=== PATIENT | female | born 1985 | race Caucasian/White ===

== ENCOUNTER 2021-04-18 16:40 | Outpatient (CLI) | payer MEDICAID, SELFPAY | END 2021-04-18 23:59 | disposition home or self-care (01) | LOC: LABSPEC 16:42 | PROVIDERS: Referring Provider Nurse Practitioner Women's Health; Visit Provider Nurse Practitioner Women's Health | DX: R30.0 Dysuria (principal) | CPT/HCPCS: 87086; 87088 ==

== ENCOUNTER 2021-06-20 16:39 | Outpatient (CLI) | payer MEDICAID, SELFPAY ==
--- NOTE | 2021-06-20 16:44 | US_ITS ---
STUDY: ULTRASOUND OF THE FEMALE PELVIS - COMPLETE REASON FOR EXAM: Female, 36 years old. aub TECHNIQUE: Endovaginal. Transvaginal US was obtained to better visualized the ovaries. COMPARISON: None. FINDINGS: The uterus is retroflexed and is in a midline position. The uterus measures 8.4 x 6 point cm. There is a Nabothian cyst of the cervix. The endometrium measures 17 mm in thickness, and is hyperechoic. There is no demonstrated endometrial mass. Uterine fibroid visualized measuring 13 mm. I.U.D. - The patient does not have an I.U.D. The right ovary is visualized. The right ovary measures 3.3 x 3.1 cm. There is no right ovarian cyst or ovarian mass. There is no visualized right adnexal mass or complex lesion. There is normal arterial and normal venous vascularity. The left ovary is visualized. The left ovary measures 1.5 x 1 cm. Physiologic follicle of the left ovary measuring 7 mm. There is no visualized left adnexal mass or complex lesion. There is normal arterial and normal venous vascularity. There is no fluid in the cul-de-sac. US/Transvaginal Non- IMPRESSION: There is a Nabothian cyst of the cervix. Fibroid uterus Electronically Signed: Stu Ho MD at 18:39 EST Reading Location ID and State: [facility] / [place] , Service support ,
== END 2021-06-20 23:59 | disposition home or self-care (01) ==
LOC: US 16:42
PROVIDERS: Referring Provider Obstetrics & Gynecology; Visit Provider Obstetrics & Gynecology
DX: N93.9 Abnormal uterine and vaginal bleeding, unspecified (principal)
CPT/HCPCS: 76830

== ENCOUNTER 2021-06-30 11:51 | Outpatient (CLI) | payer MEDICAID, SELFPAY ==
--- NOTE | 2021-06-29 | EMB_PTH ---
PATIENT: MAG ESQUIVEL LOC: [facility] U#:[id number] AGE/SX: 36/F ROOM: RE06/30/[address]: Dr. Sabrina Madrigal MD : 1985 BED: DIS: 06/30/2021 SPEC #: [id number] RECD: 06/30/21 12:55 STATUS: CHAIM REGerson #: [id number] AMARILIS: 06/29/21 00:[address]: Sabrina Madrigal DEPT: SURGICAL PATHOLOGY RECD BY: Ab Esqueda ENTERED: 06/30/21 12:56 SP TYPE: ENDOM BX/C KIERSTEN DR: No Primary Care Phys Tissues: Endometrium, NOS Procedures: Surgery Specimen Level IV HEADER OPERATION: Endometrial biopsy PRE-OP DIAGNOSIS: Abnormal uterine bleeding TISSUE SUBMITTED: Endometrial biopsy MICROSCOPIC DIAGNOSIS Endometrium, biopsy: Secretory endometrium. AM:debbie 07/01/2021 MICROSCOPIC DESCRIPTION Slides are reviewed. GROSS DESCRIPTION Received is one container labeled with the patient's name and not further designated. The specimen consists of multiple irregular fragments of rushing tissue that in aggregate measure 2 x 1.5 x 0.1 cm. The specimen is totally submitted in one cassette. / AM:debbie 06/30/2021 TC:5 CPT: 61538
== END 2021-06-30 23:59 | disposition home or self-care (01) ==
LOC: LABSPEC 11:52
PROVIDERS: Visit Provider Obstetrics & Gynecology
DX: N93.9 Abnormal uterine and vaginal bleeding, unspecified (principal)
CPT/HCPCS: 88305

== ENCOUNTER 2021-08-02 08:06 | Day surgery (SDC) | payer MEDICAID, SELFPAY ==
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
[2021-08-01 07:36] LABS: Absolute Lymphocyte Count 2.03 X10^3/uL (0.83-4.51); Absolute Neutrophil Count 4.7 X10^3/uL (2.0-7.7); Basophil# 0.08 X10^3/uL; Eosinophil# 0.46 X10^3/uL; Eosinophils% 5.7 % (0-5); Hematocrit 38.8 % (37-47); Hemoglobin 12.5 g/dL (12.0-15.0); Lymphocyte # 2.03 X10^3/ul (0.83-4.51); Lymphocyte % 25.3 % (19-41); Mean Corp Hgb Conc 32.2 g/dL (32-36); Mean Corpuscular Hgb 26.8 pg (27.0-32.0); Mean Corpuscular Volume 83.3 fL (81-99); Mean Platelet Vol. 9.3 fl (6.2-12.0); Monocyte# 0.76 X10^3/uL; Monocyte% 9.5 % (0-10); NRBC Flagged by Analyzer 0 % (0-5); Neutrophil # 4.67 X10^3/uL (2.7-7.7); Neutrophil % 58.3 % (47-70); Platelet Count 320 K/mm3 (150-450); RBC Distribution Width CV 14.3 % (11.6-14.6); RBC Distribution Width SD 43.4 fl (35.1-43.9); Red Blood Count 4.66 M/mm3 (4.2-5.4)
[2021-08-01 08:15] LABS: T4 Free Direct 0.94 ng/dL (0.76-1.46); Thyroid Stim Hormone (TSH) 1.44 uIU/mL (0.358-3.74)
[2021-08-02] VITALS (12 sets, daily range): BP systolic 99–136; BP diastolic 59–84; PULSE 51–80; RESP 16–20; TEMP 36.1–36.4; O2SAT 95–100; BMI 45.2
[2021-08-02 08:36] LABS: Internal QC Validated? YES +Cl - CLEAR BKGD
[2021-08-02 08:40] LABS: Pregnancy, Urine Negative Negative
[2021-08-02] MEDS: dexAMETHasone 10 MG/ML Vial 8 MG IV (08:44)
[2021-08-02] MEDS: Enoxaparin 40 MG/0.4 ML Syringe SC (09:11)
[2021-08-02] MEDS: Acetaminophen 500 MG Tablet 1000 MG PO (09:11)
[2021-08-02] MEDS: Gabapentin 600 MG Tablet PO (09:11)
[2021-08-02] MEDS: Lactated Ringers 1,000 ML 40 ML IV ×2 (09:11→11:30)
[2021-08-02] MEDS: Celecoxib 200 MG Capsule 400 MG PO (09:11)
[2021-08-02] MEDS: Phenazopyridine 95 MG Tablet 190 MG PO (09:11)
[2021-08-02] MEDS: Scopolamine 1mg/72hr Patch 1 PATCH TD (09:12)
[2021-08-02 09:26] LABS: Bedside Glucose 109 mg/dL (74-106)
--- NOTE | 2021-08-02 10:05 | HYST_PTH ---
PATIENT: MAG ESQUIVEL LOC: [facility] [place] U#:[id number] AGE/SX: 36/F ROOM: RE08/02/[address]: Dr. Sabrina Madrigal MD : 1985 BED: DIS: 08/02/2021 SPEC #: [id number] RECD: 08/02/21 14:16 STATUS: CHAIM REGerson #: [id number] AMARILIS: 08/02/21 10:[address]: Sabrina Madrigal DEPT: SURGICAL PATHOLOGY RECD BY: Beau Carballo ENTERED: 08/03/21 09:53 SP TYPE: HYSTERECT OTHR DR: Dr. Shyanne Walker MD Tissues: Uterus, NOS Procedures: Surgery Specimen Level V HEADER OPERATION: ERAS, hysterectomy, LAVH, salpingectomy PRE-OP DIAGNOSIS: Abnormal uterine bleeding TISSUE SUBMITTED: Uterus, cervix, bilateral fallopian tubes MICROSCOPIC DIAGNOSIS Uterus, cervix, bilateral fallopian tubes, hysterectomy and bilateral salpingectomy: Cervix ? mild chronic cystic cervicitis. Endometrium ? proliferative endometrium. Myometrium ? an intramural leiomyoma (1 cm in diameter). Bilateral fallopian tubes - no pathologic diagnosis. SJ:rg 08/04/2021 MICROSCOPIC DESCRIPTION Slides are reviewed. GROSS DESCRIPTION Received in fixative is one container labeled with the patient's name and designated uterus, cervix, bilateral fallopian tubes. The specimen consists of a hysterectomy specimen consisting of uterus with cervix and attached bilateral fallopian tubes. The uterus with cervix weighs 127 gm and measures 11 x 7 x 5 cm. The serosal surface is rushing, glistening. The ectocervix is focally disrupted and unremarkable. The external os is oval in contour. The endocervical canal measures 3.5 cm in length and the endocervical mucosa is rushing, glistening and unremarkable. Sections of the cervix reveal a few cysts filled with mucoid material. The triangular endometrial cavity measures 5 cm in length and up to cm in width. The endometrial cavity shows a small amount of blood. The endometrium is congested without any mass lesion and measures 0.1 cm in thickness. Sections of the uterine wall reveal a rushing, nodular mass measuring 1 cm in diameter. The uterine wall measures up to 2.8 cm in thickness. The right fallopian tube measures 5 cm in length and up to 1 cm in diameter. The fimbrial end is identified. Sections reveal unremarkable cut surfaces. The left fallopian tube is similar appearance to right and measures 7 cm in length and 1 cm in diameter. Medical Underwriter sections are submitted in nine cassettes as follows: 1??anterior cervix, 2 - posterior cervix, 3 & 4 - anterior uterine wall, 5 & 6 - posterior uterine wall, 7??nodular mass, 8 - right fallopian tube, 9 - left fallopian tube. / JEREMIAH:debbie 08/03/2021 TC:1 CPT: 00166
[2021-08-02] MEDS: Bupivacaine 0.25% 30 ML Vial (11:00)
[2021-08-02] MEDS: Vasopressin 20 UNITS/ML Vial (11:40)
[2021-08-02] MEDS: Lactated Ringers @ 70 MLS/HR 70 ML IV (13:27)
--- NOTE | 2021-08-02 13:28 | OP.PCM_ITS ---
Problems Associated Problem List Diagnoses (1) Abnormal uterine bleeding: (2) S/P laparoscopic assisted vaginal hysterectomy (LAVH): Report of Operation Date of Procedure: 08/02/21 Pre-Operative Diagnosis: AUB Post-Operative Diagnosis: same Surgery/Procedure Performed:: LAVHBS cystoscopy Description of Surgical Findings:: enlarged uterus with enlarged dilated blood vessels, omental to anterior abdominal wall adhesions Surgeon: Sabrina Madrigal pupil personnel services director: Luiz Euceda Type of Anesthesia: General Special Medications: floseal Specimen's removed: uterus, tubes Drains: chan Estimated Blood Loss (mL): 200 Fluids Replaced: crystalloid Description of Procedure: Patient received preoperative antibiotics and SCDs were on preoperatively. Patient was taken back to the operating room and placed in the dorsal lithotomy position. General anesthesia was induced and patient was prepped and draped in normal sterile fashion. Uterine manipulator was placed inside the uterus and Chan catheter placed in the bladder. The umbilicus was grasped with towel clamps and an intraumbilical incision was made after injecting with quarter percent Marcaine and a Veress needle entered into the abdomen confirmed to be intra-abdominal with a low opening pressure. Abdomen was insufflated with CO2 gas and the Veress needle removed and the 5 mm trocar was placed under direct visualization without complication. Right and left lower quadrants were transilluminated and injected with quarter percent Marcaine and 5 mm ports placed under direct visualization. Pelvis was well visualized see operative findings for additional information. Bilateral fallopian tubes were identified and transected with the LigaSure device across the mesosalpinx to the level of the utero-ovarian ligament which was also transected with the LigaSure device. The broad ligament was opened up by transecting the round ligament bilaterally and skeletonizing the uterine vessels bilaterally and creating a bladder flap using the LigaSure device. The uterine arteries were transected bilaterally with good visualization of the bladder and the ureters were seen to be inferior lateral to the operative area. Attention was then paid to the vaginal portion of the procedure and the cervix was grasped with Salud clamps and circumferentially injected with dilute vasopressin. A circumferential incision was made and the vaginal mucosa was mobilized off posteriorly and the cul-de-sac entered into sharply and a longneck speculum placed. The anterior cul-de-sac was then identified and entered into sharply. The uterosacral ligaments were clamped cut and suture ligated with 0 Monocryl bilaterally followed by the cardinal ligaments which were clamped cut and suture ligated bilaterally with 0 Monocryl. The uterus serially descended and was removed without difficulty. Pelvic sidewall pedicles were checked and noted to have excellent hemostasis. The vaginal mucosa was reapproximated incorporating the posterior peritoneum. This was reapproximated using 0 Vicryl [id number] sutures. Excellent hemostasis was noted. The cystoscopy was then performed and bilateral ureteral strong spray was noted and the bladder was noted to have no abnormality or lesions seen. Chan catheter was replaced and then attention paid to the abdominal portion of the procedure again. The pelvis and cul-de-sac were well visualized and no significant active bleeding noted but some raw areas were seen on the peritoneum and therefore floseal was applied and an additional suture was placed across the cuff vaginally. additional burning was done on the right pelvic side wall. Pressure was taken down and the areas visualized and noted of excellent hemostasis. All ports were removed under direct visualization without complication and the abdomen was desufflated of air. The instruments were removed from the abdomen and the vaginal sweep was negative. Port sites on the abdomen were closed with 4-0 Monocryl interrupted sutures and Steri's and windows were applied. She was awoken and taken recovery in stable condition. Grafts/Implants Used: none Complications none Admit VTE Documentation VTE Present on Admission: No VTE Mechan Device Prophylaxis: SCD's VTE Pharm Prophylaxis ordered?: Yes Multi Select Codes Urinary/Genital Urinary/Genital CPT Codes: 76884 Cystoscopy and 72558 LAVH+BS/O <250gr Uterus
[2021-08-02] MEDS: Ketorolac 30 MG/ML Syringe IV (13:36)
--- NOTE | 2021-08-02 13:37 | PCM.DC ---
Discharge Instructions Diet Discharge Diet: No restrictions Activity May resume sexual activity in: 6 weeks Weight Bearing Status: Full weight bearing Dressing / Incision Call your doctor if your incision/area has: Continuous Slow Oozing, Sudden Increased Bleeding, Increased Pain/ Swelling, Increased Redness and Foul Smelling Discharge Call your doctor if you observe: Fever of 101 or Higher, Using more than 1 pad per hour, Shortness of breath, Chest pain and Uncontrolled pain Suture Line Care: Avoid Pulling/Pushing and Avoid Pinching/Bending Remove Dressing in: 1 week (if present) Cleanse incision/area with: Soap & Water and Keep Dressing Clean & Dry Follow Up Care Please Follow Up With: Sabrina Madrigal MD When: Call to make an appointment with your doctor for a postop visit in 2 and 6 weeks. Test Results: Test results from this visit will be discussed in further detail at your follow-up appointment, if applicable. Discharge Plan Admission Attending Provider: Sabrina Madrigal Primary Care Provider: Shyanne Walker Discharge Orders/Prescriptions Prescriptions: New oxycodone-acetaminophen [Percocet] 5-325 mg tablet 1 tab PO Q6H PRN (Reason: pain) 7 Days Qty: 20 RF: 0 naproxen [naproxen] 500 MG tablet 500 mg PO BID PRN PRN (Reason: Pain) Qty: 30 RF: 1 No Action ibuprofen 800 mg tablet 800 mg PO PRN PRN (Reason: Pain) RF: 0 cyclobenzaprine 5 mg tablet 5 mg PO TID PRN (Reason: muscle spasm) Qty: 20 RF: 0 Referrals / Follow Up: Shyanne Walker MD [Primary Care Provider] - Disposition Disposition (needs filled in before D/C Order can be placed): Home, Self Care
[2021-08-02] MEDS: oxyCODONE 5 MG Tablet PO (15:11)
[2021-08-02 16:30] LABS: Hematocrit 39.6 % (37-47); Hemoglobin 13.1 g/dL (12.0-15.0); Mean Corp Hgb Conc 33.1 g/dL (32-36); Mean Corpuscular Volume 84.6 fL (81-99); Mean Platelet Vol. 9.5 fl (6.2-12.0); Platelet Count 292 K/mm3 (150-450); RBC Distribution Width CV 14.1 % (11.6-14.6); RBC Distribution Width SD 43.5 fl (35.1-43.9); Red Blood Count 4.68 M/mm3 (4.2-5.4); White Blood Count 14.3 K/mm3 (4.4-11.0)
== END 2021-08-02 17:13 | disposition home or self-care (01) ==
LOC: SDC 08:08 → AC 08:08
PROVIDERS: Anesthesiology; PCP Family Medicine; Referring Provider Obstetrics & Gynecology; Visit Provider Obstetrics & Gynecology
PROC: 0UT9FZZ Resection of Uterus, Via Natural or Artificial Opening With Percutaneous Endoscopic Assistance (ICD-10-PCS; CPT 52000; principal; 2021-08-02 09:40)
DX: N72 Inflammatory disease of cervix uteri (principal); N93.9 Abnormal uterine and vaginal bleeding, unspecified; T78.49XA Other allergy, initial encounter; D25.1 Intramural leiomyoma of uterus; Z90.49 Acquired absence of other specified parts of digestive tract; Z98.891 History of uterine scar from previous surgery; Z97.2 Presence of dental prosthetic device (complete) (partial); Z97.3 Presence of spectacles and contact lenses
CPT/HCPCS: 52000; 58552; 00944; 36415; 81025; 82962; 83735; 84439; 84443; 85025; 85027; 86850; 86900; 86901; 87426; 88307; C9803; J7120; J2405

== ENCOUNTER → 2021-09-15 | Outpatient (CLI) | payer MEDICAID, SELFPAY ==
[2021-09-15 10:08] LABS: Cholesterol 205 mg/dL (200); Glucose 110 mg/dL (74-106); High Density Lipoprotein 43 mg/dL; Thyroid Stim Hormone (TSH) 1.59 uIU/mL (0.358-3.74); Triglycerides 133 mg/dL; Very Low Density Lipoprotein 27 mg/dL (5-40)
== END | disposition home or self-care (01) ==
LOC: PAVLAB 09:08
PROVIDERS: PCP Family Medicine; Referring Provider Obstetrics & Gynecology; Visit Provider Obstetrics & Gynecology
DX: E66.01 Morbid (severe) obesity due to excess calories (principal)
CPT/HCPCS: 36415; 80061; 82947; 84443

== ENCOUNTER → 2023-05-25 | Outpatient (CLI) | payer OTHER, SELFPAY ==
--- OUTSIDE RECORDS SUMMARY | 2023-05-25 19:33 | XMS RPT_ITS | CCD ---
Author Name Unknown Address [address] [place] [address] Organization [facility] Care Team Providers Care Kiln Firer Helper Name Role Phone Room n House Unavailable Unavailable NO REFERRING DR Unavailable Unavailable ANJEL VALERA Unavailable Unavailable Shyanne Walker Primary Care Provider Shyanne Walker MD Primary Care Provider Shyanne Walker MD Primary Care Provider Shyanne Walker MD Primary Care Provider Unavailable Primary Care Provider Unavailabl e SHYANNE WALKER Primary Care Unavailable Allergies Allergy Classification Reported Allergen(s) Allergy Type Date of Onset Reaction(s) Facility (1 source) Adhesive agent; Translations: [ADHESIVE] Propensity to adverse reactions (disorder) [facility] Repository (1 source) amoxicillin; Translations: [AMOXICILLIN] Drug Allergy [facility] Repository (1 source) NONE; Translations: [NONE] Propensity to adverse reactions (disorder) [facility] (13 sources) Grass pollen; Translations: [GRASS POLLEN] Drug Allergy 1 Intolerance [facility] (13 sources) Penicillins; Translations: [PENICILLINS] Drug Allergy 6 Hives, Itching, Other: See Comments [facility] (12 sources) Adhesive Tape-Silicones; Translations: [ADHESIVE TAPE-SILICONES] Drug Allergy 1 Rash, Itching, Other: See Comments [facility] (6 sources) Chlorhexidine; Translations: [CHLORHEXIDINE] Drug Allergy 2 Rash [facility] Medications Current Medications Medication Drug Class(es) Dates Sig (Normalized) Sig (Original) polymyxin b 62372 unt/ml / trimethoprim 1 mg/ml ophthalmic solution (1 source) Dihydrofolate Reductase Inhibitor Antibacterial, Polymyxin-class Antibacterial Start: 08-15-2022 End: 08-22-2022 take 1 drop(s) into the eye(s) four times daily trimethoprim-polymy anahi (POLYTRIM) 10,000 unit- 1 mg/mL ophthalmic solution Indications: Acute conjunctivitis of left eye, unspecified acute conjunctivitis type Use 1 Drop in the left eye four times daily for 7 days. 1.4 mL 0 08/15/2022 08/22/2022 Active Completed/Discontinued Medications Medication Drug Class(es) Dates Sig (Normalized) Sig (Original) acetaminophen 325 mg oral tablet (8 sources) Start: 01-16-2021 take 3 tablets by mouth every eight hours as needed for pain acetaminophen (TYLENOL) 325 mg tablet Take 3 tablets by mouth every 8 hours as needed for pain. 30 tablet 0 01/16/2021 Active Problems Active Problems Problem Classification Problem Date Documented Date Episodic/Chronic Genitourinary symptoms and ill-defined conditions (1 source) Increased frequency of urination; Translations: [Frequency of micturition] 05-17-2023 Episodic Inflammation; infection of eye (except that caused by tuberculosis or sexually transmitteddisease) (1 source) Acute conjunctivitis of left eye; Translations: [Unspecified acute conjunctivitis, left eye] Episodic Malaise and fatigue (1 source) Fatigue; Translations: [Other fatigue] Episodic Menstrual disorders (2 sources) Amenorrhea; Translations: [Amenorrhea] Chronic Other complications of (1 source) Maternal obesity complicating , childbirth and the puerperium, antepartum; Translations: [Obesity complicating , first trimester] Episodic Other complications of (5 sources) Supervision of with other poor reproductive or obstetric history, unspecified trimester; Translations: [History of gestational diabetes in prior , currently ] Onset: 06-17-2020 06-17-2020 Episodic Other complications of (1 source) Uterine scar from previous surgery in , childbirth and the puerperium; Translations: [Maternal care due to low transverse uterine scar from previous delivery] Episodic Other complications of (1 source) ultrasound increased nuchal translucency; Translations: [Nuchal translucency of fetus on ultrasound] Other congenital anomalies (2 sources) Porokeratosis; Translations: [Other specified congenital malformations of skin] Chronic Other connective tissue disease (3 sources) Pain in left foot; Translations: [Pain in left foot] Episodic Other connective tissue disease (1 source) Foreign body; Translations: [Residual foreign body in soft tissue] Episodic Other ear and sense organ disorders (2 sources) Otalgia, left ear; Translations: [Otalgia, unspecified] Episodic Other nutritional; endocrine; and metabolic disorders (8 sources) Severe obesity; Translations: [Morbid (severe) obesity due to excess calories] Onset: 01-16-2021 01-16-2021 Chronic Other screening for suspected conditions (not mental disorders or infectious disease) (1 source) care status; Translations: [ care, subsequent , first trimester] Episodic Other upper respiratory infections (5 sources) Nasal discharge; Translations: [Postnasal drip] Episodic Residual codes; unclassified (5 sources) Increased body mass index; Translations: [Increased BMI] Onset: 06-17-2020 06-17-2020 Episodic Unclassified (1 source) 23 weeks gestation of ; Translations: [23 WEEKS GESTATION OF [place]] Onset: 10-15-2016 Unclassified (2 sources) Patient encounter status; Translations: [Encounter to determine viability of , single or unspecified fetus] Past or Other Problems Problem Classification Problem Date Documented Da te Episodic/Chronic Allergic reactions (8 sources) Allergic reaction to adhesive; Translations: [Other allergy, initial encounter] Onset: 01-16-2021 01-16-2021 Episodic Diabetes or abnormal glucose tolerance complicating ; childbirth; or the puerperium (8 sources) History of gestational diabetes mellitus; Translations: [Personal history of gestational diabetes] Onset: 06-17-2020 01-16-2021 Episodic Other aftercare (1 source) Other rodent exterminator (current) drug therapy; Translations: [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] Onset: 10-15-2016 Episodic Other complications of ; puerperium affecting management of mother (1 source) Diseases of the skin and subcutaneous tissue complicating childbirth; Translations: [DZ SKIN SUBQ TISSUE COMP] Onset: 10-15-2016 Episodic Skin and subcutaneous tissue infections (3 sources) Cutaneous abscess of abdominal wall; Translations: [CUTANEOUS ABSCESS OF ABD] Onset: 10-15-2016 Episodic Results Test Name Value Interpretation Reference Range Facil ity Vital Signs Date Time Vital Sign Value Performing Clinician Jeronimo urena 05-17-2023 12:04-0500 Body temperature 97.59 [degF] Nu Pendlebury [employer] Work Phone: [facility] 05-17-2023 12:04-0500 Body weight 126.55 kg Nu Pendlekong [employer] Work Phone: [facility] 05-17-2023 12:04-0500 Diastolic blood pressure 79 mm[Hg] Nu Pendlebury [employer] Work Phone: [facility] 05-17-2023 12:04-0500 Heart rate 69 /min Nu Pendlebury [employer] Work Phone: [facility] 05-17-2023 12:04-0500 Respiratory rate 18 /min Nu Pendlebury [employer] Work Phone: [facility] 05-17-2023 12:04-0500 SaO2% (BldA) [Mass fraction] 98 % [facility] [employer] Work Phone: [facility] 05-17-2023 12:04-0500 Systolic blood pressure 145 mm[Hg] Nu Pendlebury [employer] Work Phone: [facility] 08-15-2022 11:29-0400 Body height 167.6 cm Tessa Schmitt [employer] Work Phone: [facility] 08-15-2022 11:29-0400 Body temperature 97.11 [degF] Tessa Schmitt [employer] Work Phone: [facility] 08-15-2022 11:29-0400 Body weight 122.92 kg Tessa Schmitt [employer] Work Phone: [facility] 08-15-2022 11:29-0400 Diastolic blood pressure 70 mm[Hg] Tessa Schmitt [employer] Work Phone: [facility] 08-15-2022 11:29-0400 Heart rate 64 /min Tessa Schmitt [employer] Work Phone: [facility] 08-15-2022 11:29-0400 Respiratory rate 16 /min Tessa Schmitt [employer] Work Phone: [facility] 08-15-2022 11:29-0400 SaO2% (BldA) [Mass fraction] 99 % Tessa Schmitt [employer] Work Phone: [facility] 08-15-2022 11:29-0400 Systolic blood pressure 128 mm[Hg] Tessa Schmitt [employer] Work Phone: [facility] 10-25-2021 18:21-0400 Body height 167.6 cm Tessa Schmitt [employer] Work Phone: [facility] 10-25-2021 18:21-0400 Body weight 118.39 kg Tessa Schmitt [employer] Work Phone: [facility] 10-25-2021 18:21-0400 Diastolic blood pressure 89 mm[Hg] Tessa Schmitt [employer] Work Phone: [facility] 10-25-2021 18:21-0400 Heart rate 92 /min Tessa Schmitt [employer] Work Phone: [facility] 10-25-2021 18:21-0400 Respiratory rate 16 /min Tessa Schmitt [employer] Work Phone: [facility] 10-25-2021 18:21-0400 SaO2% (BldA) [Mass fraction] 97 % Tessa Schmitt [employer] Work Phone: [facility] 10-25-2021 18:21-0400 Systolic blood pressure 131 mm[Hg] Tessa Schmitt [employer] Work Phone: [facility] 06-17-2020 11:27-0500 Body weight 129.73 kg [facility] 06-17-2020 11:27-0500 BP Diastolic 81 mm[Hg] [facility] 06-17-2020 11:27-0500 BP Systolic 134 mm[Hg] [facility] 06-17-2020 11:27-0500 Height 168.9 cm [facility] Encounters Encounter Date Encounter Type Care Provider Facility Start: 05-17-2023 End: 05-17-2023 ambulatory SHYANNE WALKER Facility:[facility] Start: 05-17-2023 End: 05-17-2023 Office outpatient visit 15 minutes Nu Cardona [employer] Work Phone: [facility] Procedures Date Procedure Procedure Detail Performing Clinician Start: 05-17-2023 Urnls dip stick/tabl et rgnt auto w/o microscopy Sheree Ignacio [employer] Work Phone: Start: 12-22-2021 Radex foot complete minimum 3 views Darell Romanobrendan Work Phone: Start: 10-25-2021 STREP A MOLECULAR (POC) [facility] Provider Start: 01-14-2021 Antibody screen Plan of Treatment Date Care Activity Detail Author Start: 08-05-2025 HPV TESTING HPV TESTING [facility] Start: 08-05-2025 PAP TESTING PAP TESTING [facility] Start: 08-05-2025 Screening for malign ant neoplasm of cervix [facility] Start: 04-16-2023 Depression Assessment Depression Ass [facility] Start: 12-15-2022 Influenza vaccination [facility] Start: 04-16-2022 DEPRESSION ASSESSMENT DEPRESSION ASS [facility] Start: 12-15-2021 Influenza vaccination INFLUENZA (#1) [facility] Start: 07-08-2020 End: 09-29-2020 NUCHAL TRANSLUCENCY WHI NUCHAL TRANSLUCENCY WHI Anc Imaging Routine Nuchal translucency of fetus on ultrasound Expected: 07/08/2020, Expires: 09/29/2020 [facility] Payers Date Payer Category Payer Private Health Insurance [facility] CHOICE PLUS [id number] 2023-Present [phone] [address] [place] [address] O [id number] 2023 Unknown [id number] 2022 Medicaid [id number] 2020 Unknown [employer] BLUE CARD PPO [id number] 2020-Present PPO [id number] 2020 Medicaid [place] [employer] [place] [id number] 2020-Present [phone] [address] [place] [address] Medicaid [id number] 2020 Medicaid [id number] Unknown Social History Date Type Detail Facility Tobacco smoking stat [facility] Unknown if ever smoked [facility] Start: 1985 Sex Assigned At Not on file [facility] Start: 10-15-2021 End: 12-22-2021 Exposure to SARS-CoV-2 (event) Not sure [facility] Start: 06-17-2020 End: 05-17-2023 Tobacco smoking status NHIS Never smoker [facility] Start: 06-17-2020 End: 05-17-2023 Tobacco use and exposure [facility] Start: 06-17-2020 End: 05-17-2023 Alcohol intake Ex-drinker (finding) [facility] Start: 06-17-2020 Alcohol Comment 2 x annually p rior to [facility] Start: 04-30-2020 [facility] Start: 05-12-2022 End: 05-17-2023 History of Social function [facility] Start: 05-12-2022 End: 05-17-2023 Tobacco use panel [facility] National Score (1-10 0), lower number is lower risk 38 [facility] Start: 06-15-2020 Gender identity Identifies as female gender (finding) [facility] Clinical Notes 10-13-2020 to 05-17-2023 Nu Cardona, [employer] - 05/17/2023 12:08 PM Leonie Schmitt APRN.SUPERVISOR [employer] - 08/15/2022 11:31 AM EDTPatient InstructionsPatient InstructionsMattberenicew Testrake - 05/12/2022 11:17 AM EST Note Date & Type Note Facility 05-17-2023 Note HNO ID: [id number] Author: NU CARDONA APRN.SUPER[employer]OR [employer] Service: ? Author Type: Nurse Practitioner Type: Progress Notes Filed: 05/17/2023 12:33 Note Text: Subjective HPI A nontoxic appearing female presents to urgent care with chief complaint of possible UTI. Duration of symptoms 3 weeks. Associated symptoms dysuria, frequency, and urgency. Patient has history of UTIs in past with similar signs and symptoms. Patient denies the use of any quki-fjy-otzfweb medications or home remedies for symptom management. Was seen 2 and half weeks ago. Diagnosed with acute cystitis. Placed on Pyridium and Bactrim. States that this medication did not help. Patient states pain is a 3/10. Patient denies any fevers today, flank pain, abdominal pain, nausea, vomiting, vaginal discharge, chance of STDs, chance of , or urological abnormalities. History of a hysterectomy. Past medical history prescription medications allergies reviewed. .Patient presents with: UTI: Urinary frequency, low back pain, painful urination x2 days PAST MEDICAL HISTORY Diagnosis Date Diabetes, gestational 2011, 2017 with 2 prior pregnancies UTI (urinary tract infection) PAST SURGICAL HISTORY Procedure Laterality Date ANESTH, SECTION APPENDECTOMY CAUTERY ANAL FISSURE 2013 ANDREA CUT BX BREAST MASS 2014 ALLERGIES Adhesive Tape-Silicones, Chlorhexidine, Grass Pollen, and Penicillins MEDICATIONS fluticasone (FLONASE ALLERGY RELIEF) 50 mcg/actuation nasal spray Use 1 [place] in each nostril twice daily. (Patient not taking: Reported on 05/17/2023) acetaminophen (TYLENOL) 325 mg tablet Take 3 tablets by mouth every 8 hours as needed for pain. tiotropium bromide (SPIRIVA RESPIMAT INHALATION) Inhale as instructed as needed. (Patient not taking: Reported on 04/25/2022) ketotifen fumarate (ANTIHISTAMINE EYE DROPS OPHTHALMIC) Use in eyes once daily as needed. (Patient not taking: Reported on 05/17/2023) Cetirizine (ZYRTEC) 10 mg cap Take by mouth once daily as needed. (Patient not taking: Reported on 05/17/2023) FAMILY HISTORY Problem Relation Age of Onset Cancer Maternal Grandfather Cancer Paternal Grandmother Breast Cancer Paternal Grandmother Breast Cancer Other Social History Tobacco Use Smoking status: Never Smokeless tobacco: Never Vaping Use Vaping Use: Never used Substance Use Topics Alcohol use: Not Currently Comment: 2 x annually prior to Drug use: Never BP 145/79 Pulse 69 Temp 36.4 ?C (97.6 ?F) Resp 18 Wt 126.6 kg (279 lb) SpO2 98% No BMI 45.03 kg/m? Review of Systems Constitutional: Negative for chills, fever and malaise/fatigue. HENT: Negative for congestion, ear discharge, ear pain, sinus pain and sore throat. Eyes: Negative for blurred vision, pain, discharge and redness. Respiratory: Negative for cough, hemoptysis, sputum production, shortness of breath, wheezing and stridor. Cardiovascular: Negative for chest pain. Gastrointestinal: Negative for abdominal pain, diarrhea, nausea and vomiting. Genitourinary: Positive for dysuria, frequency and urgency. Negative for flank pain and hematuria. Musculoskeletal: Negative for myalgias. Skin: Negative for itching and rash. Neurological: Negative for dizziness and headaches. Objective Physical Exam Constitutional: General: She is not in acute distress. Appearance: She is not diaphoretic. HENT: Head: Normocephalic. Eyes: Conjunctiva/sclera: Conjunctivae normal. Pupils: Pupils are equal, round, and reactive to light. Cardiovascular: Rate and Rhythm: Normal rate and regular rhythm. Heart sounds: Normal heart sounds. Pulmonary: Effort: Pulmonary effort is normal. No tachypnea, accessory muscle usage or respiratory distress. Breath sounds: Normal breath sounds. No stridor. No wheezing, rhonchi or rales. Abdominal: General: There is no distension. Palpations: Abdomen is soft. Tenderness: There is no abdominal tenderness. There is no right CVA tenderness, left CVA tenderness, guarding or rebound. Musculoskeletal: Arms: Cervical back: Normal range of motion. No edema or erythema. No pain with movement. Normal range of motion. Comments: Pain at highlighted area. Skin: General: Skin is warm and dry. Neurological: Mental Status: She is alert and oriented to person, place, and time. ASSESSMENT/PLAN: 1. Urinary frequency - ICD9: 788.41, ICD10: R35.0 - UA DIP, URINE (POC) - URINE CULTURE Diagnosed with urinary frequency dysuria. No evidence of bacterial infection on today's exam. Trace amount of blood noted. Treat conservative at this point. Treat according to urine culture results. Vaginal self swabs offered patient declined. Is following with DENSITOMETER READER in 1 week. Will discuss trace amount of blood and ongoing symptoms. Red flags for ER evaluation discussed. Patient was educated on supportive therapies. Patient will follow up with primary care provi (more content not included)... [facility] 05-17-2023 History of Present illness Narrative Images from the original note were not included. Subjective HPI A nontoxic appearing female presents to urgent care with chief complaint of possible UTI. Duration of symptoms 3 weeks. Associated symptoms dysuria, frequency, and urgency. Patient has history of UTIs in past with similar signs and symptoms. Patient denies the use of any ftlg-gea-tzgzqab medications or home remedies for symptom management. Was seen 2 and half weeks ago. Diagnosed with acute cystitis. Placed on Pyridium and Bactrim. States that this medication did not help. Patient states pain is a 3/10. Patient denies any fevers today, flank pain, abdominal pain, nausea, vomiting, vaginal discharge, chance of STDs, chance of , or urological abnormalities. History of a hysterectomy. Past medical history prescription medications allergies reviewed. .Patient presents with: UTI: Urinary frequency, low back pain, painful urination x2 days PAST MEDICAL HISTORY Diagnosis Date Diabetes, gestational 2011, 2017 with 2 prior pregnancies UTI (urinary tract infection) PAST SURGICAL HISTORY Procedure Laterality Date ANESTH, SECTION APPENDECTOMY CAUTERY ANAL FISSURE 2013 ANDREA CUT BX BREAST MASS 2014 ALLERGIES Adhesive Tape-Silicones, Chlorhexidine, Grass Pollen, and Penicillins MEDICATIONS fluticasone (FLONASE ALLERGY RELIEF) 50 mcg/actuation nasal spray Use 1 [place] in each nostril twice daily. (Patient not taking: Reported on 05/17/2023) acetaminophen (TYLENOL) 325 mg tablet Take 3 tablets by mouth every 8 hours as needed for pain. tiotropium bromide (SPIRIVA RESPIMAT INHALATION) Inhale as instructed as needed. (Patient not taking: Reported on 04/25/2022) ketotifen fumarate (ANTIHISTAMINE EYE DROPS OPHTHALMIC) Use in eyes once daily as needed. (Patient not taking: Reported on 05/17/2023) Cetirizine (ZYRTEC) 10 mg cap Take by mouth once daily as needed. (Patient not taking: Reported on 05/17/2023) FAMILY HISTORY Problem Relation Age of Onset Cancer Maternal Grandfather Cancer Paternal Grandmother Breast Cancer Paternal Grandmother Breast Cancer Other Social History Tobacco Use Smoking status: Never Smokeless tobacco: Never Vaping Use Vaping Use: Never used Substance Use Topics Alcohol use: Not Currently Comment: 2 x annually prior to Drug use: Never BP 145/79 Pulse 69 Temp 36.4 C (97.6 F) Resp 18 Wt 126.6 kg (279 lb) SpO2 98% No BMI 45.03 kg/m Review of Systems Constitutional: Negative for chills, fever and malaise/fatigue. HENT: Negative for congestion, ear discharge, ear pain, sinus pain and sore throat. Eyes: Negative for blurred vision, pain, discharge and redness. Respiratory: Negative for cough, hemoptysis, sputum production, shortness of breath, wheezing and stridor. Cardiovascular: Negative for chest pain. Gastrointestinal: Negative for abdominal pain, diarrhea, nausea and vomiting. Genitourinary: Positive for dysuria, frequency and urgency. Negative for flank pain and hematuria. Musculoskeletal: Negative for myalgias. Skin: Negative for itching and rash. Neurological: Negative for dizziness and headaches. Objective Physical Exam Constitutional: General: She is not in acute distress. Appearance: She is not diaphoretic. HENT: Head: Normocephalic. Eyes: Conjunctiva/sclera: Conjunctivae normal. Pupils: Pupils are equal, round, and reactive to light. Cardiovascular: Rate and Rhythm: Normal rate and regular rhythm. Heart sounds: Normal heart sounds. Pulmonary: Effort: Pulmonary effort is normal. No tachypnea, accessory muscle usage or respiratory distress. Breath sounds: Normal breath sounds. No stridor. No wheezing, rhonchi or rales. Abdominal: General: There is no distension. Palpations: Abdomen is soft. Tenderness: There is no abdominal tenderness. There is no right CVA tenderness, left CVA tenderness, guarding or rebound. Musculoskeletal: Arms: Cervical back: Normal range of motion. No edema or erythema. No pain with movement. Normal range of motion. Comments: Pain at highlighted area. Skin: General: Skin is warm and dry. Neurological: Mental Status: She is alert and oriented to person, place, and time. ASSESSMENT/PLAN: 1. Urinary frequency - ICD9: 788.41, ICD10: R35.0 - UA DIP, URINE (POC) - URINE CULTURE Diagnosed with urinary frequency dysuria. No evidence of bacterial infection on today's exam. Trace amount of blood noted. Treat conservative at this point. Treat according to urine culture results. Vaginal self swabs offered patient declined. Is following with DENSITOMETER READER in 1 week. Will discuss trace amount of blood and ongoing symptoms. Red flags for ER evaluation discussed. Patient was educated on supportive therapies. Patient will follow up with primary care provider as needed. Patient was instructed to immediately proceed to emergency room for any new, worsening, or symptoms lasting longer than anticipated. The patient's clinical presentation is otherwise unremarkable at this time. Based on exam and clinical finding, the patient is stable for discharge. Plan of care was discussed with patient. Patient verbalizes understanding and agrees to plan of care. This note was generated using [employer] software. It may contain errors in wording, punctuation, or spelling. Nu Cardona APRN.HETAL documented in this encounter [facility] 08-15-2022 Note HNO ID: [id number] Author: Tessa Schmitt APRN.[employer] Service: ? Author Type: Nurse Practitioner Type: Progress Notes Filed: 08/15/2022 11:44 AM Note Text: This note was created using Signal. Subjective Mag Pinto is a 37 year old female. HPI by patient: Mag Pinto is a 37 year old presenting to the office with the complaint of left eye irritation. Started yesterday. Associated symptoms include left eye redness, slight pain, and drainage. Some light sensitivity. Denies uri symptoms that are current, cough, fever, and change in vision. Denies contact use. Covid Immunization Dates Overdue - COVID-19 VACCINE (1) Overdue - never done No completion, postpone, frequency change, or communication history exists for this topic. Sick contacts: yes, son with pink eye. Smoking history/second hand smoke: none. OTC not used. No antibiotic use in the last 60 days. ALLERGIES Adhesive Tape-Silic* Rash, Itching, Other: See Comments Comment:Burning sensation. Pt required steroids d/t surgical drape on her skin Chlorhexidine Rash Grass Pollen Intolerance Penicillins Hives, Itching, Other: See Comments Family History Reviewed Including Cardiac Diseases, Psychiatric Diseases, AND Substance Abuse Problem: Cancer Relation: Maternal Grandfather Age of Onset: (Not Specified) Problem: Cancer Relation: Paternal Grandmother Age of Onset: (Not Specified) Problem: Breast Cancer Relation: Paternal Grandmother Age of Onset: (Not Specified) Problem: Breast Cancer Relation: Other Age of Onset: (Not Specified) Social History Tobacco Use Smoking status: Never Smokeless tobacco: Never Vaping Use Vaping Use: Never used Alcohol use: Not Currently Comment: 2 x annually prior to Drug use: Never Active Ambulatory Problems History of gestational diabetes Date Noted: 06/17/2020 History of section Date Noted: 01/14/2021 Class 3 severe obesity without serious comorbidity in adult (HCC) Date Noted: 01/16/2021 Allergic reaction to adhesive Date Noted: 01/16/2021 Resolved Ambulatory Problems Obesity complicating , third trimester Date Noted: 06/17/2020 Supervision of high risk in third trimester Date Noted: 12/31/2020 Past Medical History: 2011, 2017: Diabetes, gestational No date: UTI (urinary tract infection) Review of Systems Constitutional: Negative. HENT: Negative. Eyes: Positive for photophobia, pain, discharge and redness. Negative for visual disturbance. Respiratory: Negative. Cardiovascular: Negative. Gastrointestinal: Negative. Endocrine: Negative. Genitourinary: Negative. Musculoskeletal: Negative. Skin: Negative. Neurological: Negative. Hematological: Negative. Objective BP 128/70 Pulse 64 Temp 36.2 ?C (97.1 ?F) Resp 16 Ht 167.6 cm (5' 6 ) Wt 122.9 kg (271 lb) SpO2 99% BMI 43.74 kg/m? Physical Exam Vitals reviewed. Constitutional: General: She is not in acute distress. Appearance: She is not ill-appearing, toxic-appearing or diaphoretic. Eyes: General: Right eye: No discharge or hordeolum. Left eye: Discharge present.No hordeolum. Extraocular Movements: Extraocular movements intact. Conjunctiva/sclera: Right eye: Right conjunctiva is not injected. Left eye: Left conjunctiva is injected. Pupils: Pupils are equal, round, and reactive to light. Cardiovascular: Rate and Rhythm: Normal rate and regular rhythm. Pulmonary: Effort: Pulmonary effort is normal. Psychiatric: Behavior: Behavior is cooperative. Assessment and Plan (H10.32) Acute conjunctivitis of left eye, unspecified acute conjunctivitis type (primary encounter diagnosis) Plan: trimethoprim-polymyxin (POLYTRIM) 10,000 unit- 1 mg/mL ophthalmic solution Direct contact with pink eye. Left eye is now red, painful, and having drainage. Will treat with poltyrim drops. -Wash hands before and after touching the eye. Do not rub the eye. -Warm compress to remove any drainage if there is any. Cool compress for comfort or itchiness. -If you have bacterial conjunctivitis, pink eye, you are contagious for 24 hours after starting drops. No close facial contact during this time. -If no improvement in 48 hours please follow up with Ophthalmology -Warning symptoms: sudden loss of vision, sharp eye pain, sudden blurry vision, dizziness. -Be seen immediately with warning symptoms. The patient will pursue further outpatient evaluation with the primary care physician or another Urgent Care/Express Care as outlined in the after visit summary. The patient is agreeable to this plan of care and follow-up instructions have been explained in detail. The patient has received these instructions in written format and have expressed an understanding of the after visit summary. Medical Decision Making: Level: 4 - Moderate I spent a total of 20 minutes on the date of the service which included preparing to (more content not included)... [facility] 08-15-2022 History of Present illness Narrative This note was created using [employer]. Subjective Mag Pinto is a 37 year old female. HPI by patient: Mag Pinto is a 37 year old presenting to the office with the complaint of left eye irritation. Started yesterday. Associated symptoms include left eye redness, slight pain, and drainage. Some light sensitivity. Denies uri symptoms that are current, cough, fever, and change in vision. Denies contact use. Covid Immunization Dates Overdue - COVID-19 VACCINE (1) Overdue - never done No completion, postpone, frequency change, or communication history exists for this topic. Sick contacts: yes, son with pink eye. Smoking history/second hand smoke: none. OTC not used. No antibiotic use in the last 60 days. ALLERGIES Adhesive Tape-Silic* Rash, Itching, Other: See Comments Comment:Burning sensation. Pt required steroids d/t surgical drape on her skin Chlorhexidine Rash Grass Pollen Intolerance Penicillins Hives, Itching, Other: See Comments Family History Reviewed Including Cardiac Diseases, Psychiatric Diseases, & Substance Abuse Problem: Cancer Relation: Maternal Grandfather Age of Onset: (Not Specified) Problem: Cancer Relation: Paternal Grandmother Age of Onset: (Not Specified) Problem: Breast Cancer Relation: Paternal Grandmother Age of Onset: (Not Specified) Problem: Breast Cancer Relation: Other Age of Onset: (Not Specified) Social History Tobacco Use Smoking status: Never Smokeless tobacco: Never Vaping Use Vaping Use: Never used Alcohol use: Not Currently Comment: 2 x annually prior to Drug use: Never Active Ambulatory Problems History of gestational diabetes Date Noted: 06/17/2020 History of section Date Noted: 01/14/2021 Class 3 severe obesity without serious comorbidity in adult (HCC) Date Noted: 01/16/2021 Allergic reaction to adhesive Date Noted: 01/16/2021 Resolved Ambulatory Problems Obesity complicating , third trimester Date Noted: 06/17/2020 Supervision of high risk in third trimester Date Noted: 12/31/2020 Past Medical History: 2011, 2016: Diabetes, gestational No date: UTI (urinary tract infection) Review of Systems Constitutional: Negative. HENT: Negative. Eyes: Positive for photophobia, pain, discharge and redness. Negative for visual disturbance. Respiratory: Negative. Cardiovascular: Negative. Gastrointestinal: Negative. Endocrine: Negative. Genitourinary: Negative. Musculoskeletal: Negative. Skin: Negative. Neurological: Negative. Hematological: Negative. Objective BP 128/70 Pulse 64 Temp 36.2 C (97.1 F) Resp 16 Ht 167.6 cm (5' 6 ) Wt 122.9 kg (271 lb) SpO2 99% BMI 43.74 kg/m Physical Exam Vitals reviewed. Constitutional: General: She is not in acute distress. Appearance: She is not ill-appearing, toxic-appearing or diaphoretic. Eyes: General: Right eye: No discharge or hordeolum. Left eye: Discharge present.No hordeolum. Extraocular Movements: Extraocular movements intact. Conjunctiva/sclera: Right eye: Right conjunctiva is not injected. Left eye: Left conjunctiva is injected. Pupils: Pupils are equal, round, and reactive to light. Cardiovascular: Rate and Rhythm: Normal rate and regular rhythm. Pulmonary: Effort: Pulmonary effort is normal. Psychiatric: Behavior: Behavior is cooperative. Assessment and Plan (H10.32) Acute conjunctivitis of left eye, unspecified acute conjunctivitis type (primary encounter diagnosis) Plan: trimethoprim-polymyxin (POLYTRIM) 10,000 unit- 1 mg/mL ophthalmic solution Direct contact with pink eye. Left eye is now red, painful, and having drainage. Will treat with poltyrim drops. -Wash hands before and after touching the eye. Do not rub the eye. -Warm compress to remove any drainage if there is any. Cool compress for comfort or itchiness. -If you have bacterial conjunctivitis, pink eye, you are contagious for 24 hours after starting drops. No close facial contact during this time. -If no improvement in 48 hours please follow up with Ophthalmology -Warning symptoms: sudden loss of vision, sharp eye pain, sudden blurry vision, dizziness. -Be seen immediately with warning symptoms. The patient will pursue further outpatient evaluation with the primary care physician or another Urgent Care/Express Care as outlined in the after visit summary. The patient is agreeable to this plan of care and follow-up instructions have been explained in detail. The patient has received these instructions in written format and have expressed an understanding of the after visit summary. Medical Decision Making: Level: 4 - Moderate I spent a total of 20 minutes on the date of the service which included preparing to see the patient, [id number] patient care, completing clinical documentation, obtaining and/or reviewing separately obtained history, performing a medically appropriate examination, counseling and educating the patient/family/caregiver, and ordering medications, tests, or procedures. documented in this encounter [facility] 05-02-2023 Instructions Tessa Schmitt APRN.CNP - 08/15/2022 11:30 AM EDT (H10.32) Acute conjunctivitis of left eye, unspecified acute conjunctivitis type (primary encounter diagnosis) Plan: trimethoprim-polymyxin (POLYTRIM) 10,000 unit- 1 mg/mL ophthalmic solution Direct contact with pink eye. Left eye is now red, painful, and having drainage. Will treat with poltyrim drops. -Wash hands before and after touching the eye. Do not rub the eye. -Warm compress to remove any drainage if there is any. Cool compress for comfort or itchiness. -If you have bacterial conjunctivitis, pink eye, you are contagious for 24 hours after starting drops. No close facial contact during this time. -If no improvement in 48 hours please follow up with Ophthalmology -Warning symptoms: sudden loss of vision, sharp eye pain, sudden blurry vision, dizziness. -Be seen immediately with warning symptoms. documented in this encounter [facility] 05-12-2022 Instructions Darell Vela - 05/12/2022 11:25 AM EST Trichloroacetic acid (TCA) has been applied to the plantar warts. Rinse off in 12 hours and keep clean and dry. May bathe and shower normally starting the day after treatment The area is expected to burn and blister in about 1-3 days, if painful soak in plain, cool water. If blistered, you may drain the blister with a clean, STERILIZED needle and apply OTC antibiotic ointment and band aid to area. Repeat 2-3 times daily as needed. Tylenol or Aleve as needed for pain, provided you have no allergies to either of these. Keep scheduled follow up appointment to have wart(s) re-evaluated and/or additional treatments. documented in this encounter [facility] 05-12-2022 History of Present illness Narrative Images from the original note were not included. FOLLOW UP PODIATRIC OFFICE VISIT Chief Complaint: This 37 year old who presents for follow up:painful porokeratosis of left foot Patient presents to clinic for follow-up left foot pain She has painful porokeratosis to the left foot Patient had this shaved down in December and this helped until . The pain slowly increased thereafter. Now she gets occasional numbness and hot flashes in the left foot. PAIN EVALUATION 05/12/2022 0825 Pain Level: 4 Pain Location: Foot-Left Description: Aching;Burning;Sharp Frequency: Intermittent Hemoglobin A1C Date Value Ref Range Status 11/25/2013 5.6 4.2 - 6.3 % Final Comment: Method is National Glycohemoglobin Standardization Program (NGSP) compliant. PCP: Shyanne Walker MD PAST MEDICAL HISTORY Diagnosis Date Diabetes, gestational 2011, 2016 with 2 prior pregnancies UTI (urinary tract infection) Current Outpatient Medications Medication Sig fluticasone (FLONASE ALLERGY RELIEF) 50 mcg/actuation nasal spray Use 1 [place] in each nostril twice daily. ketotifen fumarate (ANTIHISTAMINE EYE DROPS OPHTHALMIC) Use in eyes once daily as needed. Cetirizine (ZYRTEC) 10 mg cap Take by mouth once daily as needed. acetaminophen (TYLENOL) 325 mg tablet Take 3 tablets by mouth every 8 hours as needed for pain. tiotropium bromide (SPIRIVA RESPIMAT INHALATION) Inhale as instructed as needed. (Patient not taking: No sig reported) No current facility-administered medications for this visit. ALLERGIES Allergen Reactions Adhesive Tape-Silic* Rash, Itching, Other: See Comments Burning sensation. Pt required steroids d/t surgical drape on her skin Chlorhexidine Rash Grass Pollen Intolerance Penicillins Hives, Itching, Other: See Comments PAST SURGICAL HISTORY Procedure Laterality Date ANESTH, SECTION APPENDECTOMY CAUTERY ANAL FISSURE 2013 ANDREA CUT BX BREAST MASS 2014 Physical Exam: OBJECTIVE: Constitutional: Pt is a well developed 37 year old female who is alert, oriented, cooperative and in no apparent distress. Eyes: Following during examination. No redness or drainage. Respiratory: RR normal and nonlabored. Even breathing. No evidence of distress. Psychology: Patient is engaged during conversation. Normal affect and mood. Does not appear depressed or anxious. NVSI unchanged from previous visit. Dermatological: Porokeratosis present to plantar lateral left foot. No signs of infection No evidence of verruca Low concern for foreign body Musculoskeletal/Orthopaedic: Patient has pain to palpation of porokeratotic lesion of left foot ASSESSMENT: (Q82.8) Porokeratosis (primary encounter diagnosis) PLAN: Discussed lesion of left foot. She has a white nucleated corn to plantar left foot, most likely porokeratosis. This was debrided with 15 blade and tca applied. She can use padding as needed to offload this area I have low index of suspicion for foreign body. If she would like to get ultrasound, this would confirm presence of foreign body but again, I have low suspicion. Can f/u prn Darell Vela DPM AMB ROOMING INTAKE FLOWSHEET DATA Pain Pain Level: 4 Pain Location: Foot-Left Description: Aching, Burning, Sharp Frequency: Intermittent Patient presents with: Left Foot - Established Patient, Follow Up, Pain, foreign body Natali Escudero LPN documented in this encounter [facility] 12-22-2021 History of Present illness Narrative Images from the original note were not included. Consultation requested by Dr. Schmitt for an opinion regarding left foot pain. My final recommendations will be communicated back to the requesting physician by way of shared Medical record or letter to requesting physician via [place] mail. Initial Podiatric Office Visit: Chief Complaint: This 36 year old female who presents with chief complaint:left foot pain HPI Patient presents to clinic for evaluation of left foot. Patient has painful callus to the plantar aspect of left lateral arch. This has bene present since September She hsa concerns that she may have stepped on something Patient feels it may be possible she may have stepped on glass Patient has not tried anything for this. PAIN EVALUATION 12/22/2021 1110 Pain Level: -- baseline 2-3/10 when walking or weight bearing 11/23 Pain Location: Foot-Left Description: Burning;Sharp;Stabbing Duration Amount of Time: 3 Duration Units: Months Frequency: Intermittent Intervention/Comfort measure: Reposition;Relaxation;Distraction s Hemoglobin A1C (%) Date Value 11/25/2013 5.6 PCP: Shyanne Walker MD PAST MEDICAL HISTORY Diagnosis Date Diabetes, gestational 2011, 2017 with 2 prior pregnancies UTI (urinary tract infection) Current Outpatient Medications Medication Sig fluticasone (FLONASE ALLERGY RELIEF) 50 mcg/actuation nasal spray Use 1 [place] in each nostril twice daily. ketotifen fumarate (ANTIHISTAMINE EYE DROPS OPHTHALMIC) Use in eyes once daily as needed. Cetirizine (ZYRTEC) 10 mg cap Take by mouth once daily as needed. Phentermine HCl 37.5 mg tablet Take by mouth. methylPREDNISolone (MEDROL, SEAN,) 4 mg Dose-Pack Take by mouth per package instructions fexofenadine (AVIS ALLERGY) 180 mg tablet Take 1 tablet by mouth once daily. acetaminophen (TYLENOL) 325 mg tablet Take 3 tablets by mouth every 8 hours as needed for pain. ibuprofen (MOTRIN) 800 mg tablet Take 1 tablet by mouth every 8 hours as needed for pain. tiotropium bromide (SPIRIVA RESPIMAT INHALATION) Inhale as instructed as needed. (Patient not taking: No sig reported) Magnesium Oxide 500 mg cap Take by mouth daily at bedtime. (Patient not taking: Reported on 01/20/2021 ) [id number] acid-B6 (CITRANATAL B-CALM, FE GLUC,) 20 mg iron-1 mg -25 mg/25 mg TbSQ Take 1 tablet by mouth once daily. PNV [id number] 1-DSS-DHA ORAL Take 1 tablet by mouth once daily. (Patient not taking: Reported on 11/03/2020 ) No current facility-administered medications for this visit. ALLERGIES Allergen Reactions Adhesive Tape-Silic* Rash, Itching, Other: See Comments Burning sensation. Pt required steroids d/t surgical drape on her skin Chlorhexidine Rash Grass Pollen Intolerance Penicillins Hives, Itching, Other: See Comments PAST SURGICAL HISTORY Procedure Laterality Date ANESTH, SECTION APPENDECTOMY CAUTERY ANAL FISSURE 2013 ANDREA CUT BX BREAST MASS 2014 FAMILY HISTORY Problem Relation Age of Onset Cancer Maternal Grandfather Cancer Paternal Grandmother Breast Cancer Paternal Grandmother Breast Cancer Other Social History Tobacco Use Smoking status: Never Smokeless tobacco: Never Vaping Use Vaping Use: Never used Substance Use Topics Alcohol use: Not Currently Comment: 2 x annually prior to Drug use: Never REVIEW OF SYSTEMS GENERAL: Negative for Malaise, significant weight loss, fever RESPIRATORY: Negative for cough, wheezing and shortness of breath CARDIOVASCULAR: Negative for chest pain, leg swelling and palpitations GI: Negative for abdominal discomfort, blood in stools or black stools and change in bowel habits : Negative for dysuria, frequency and incontinence MUSCULOSKELETAL: Negative for joint pain or swelling, back pain, and muscle pain. SKIN: Negative for lesions, rash, and itching. HEMATOLOGY/LYMPHOLOGY Negative for prolonged bleeding, bruising easily, and swollen nodes. ENDOCRINE: Negative for cold or heat intolerance, polyuria, polydipsia and goiter. NEURO: negative Physical Exam: Constitutional: Pt is a well developed 36 year old female who is alert, oriented and cooperative Eyes: Following during examination. No redness or drainage. Respiratory: RR normal and nonlabored. Even breathing. No evidence of distress or shortness of breath. Psychology: Patient is engaged during conversation. Normal affect and mood. Does not appear depressed or anxious during encounter. Vascular: Dorsalis pedis and posterior tibial pulses palpable as b/l Capillary Fill time < 5 seconds to digits 1-5 b/l Skin temperature warm to warm proximal to distal b/l Hair growth present to digits Neurological: intact light touch/epicritic sensation b/l intact protective sensation no significant neurological deficits Dermatological: Nails 1-5 b/l appear normal. Webspaces clean and dry 1-4 b/l. Skin appears well hydrated and supple. good color, texture, turgor. No open lesions present. Porokeratosis present to left plantar foot. Cannot exclude possible deep foreign body. No signs of infection . Musculoskeletal/Orthopaedic: Patient has pain to palpation of left plantar foot. Radiographs: 3 views left foot ordered December 22, 2021: I have personally reviewed and interpreted these XR myself: no acute fracture. No evidence of foreign body ASSESSMENT: (Q82.8) Porokeratosis (primary encounter diagnosis) (M79.672) Foot pain, left (M79.5) Foreign body (FB) in soft tissue PLAN: 1. History and physical examination performed. 2. XR reviewed with patient and interpreted today 3. I see no evidence of foreign body on xray 4. Porokeratosis present and this was debrided in order to further access for deep foreign body. No forieng body or deep wound noted. Recommend getting ultrasound for further evaluation. 5. In order to perform a complete physical exam, limited shaving of callus area was performed. This incidental service is integral to the evaluation and management visit in order to appropriately manage and treat the patient (for their complaint or for this visit). 6. Will call with results. Darell Vela DPM Podiatry [address] [place] [address] Dept: [phone] Dept AMB ROOMING INTAKE FLOWSHEET DATA Risk Screening Do you have concerns about personal safety or safety in the home?: No Pain Pain Level: (baseline 2-10 when walking or weight bearing 11/23) Pain Location: Foot-Left Description: Burning, Sharp, Stabbing Duration Amount of Time: 3 Duration Units: Months Frequency: Intermittent Intervention/Comfort measure: Reposition, Relaxation, Distractions Patient presents with: Left Foot - New, Pain, Foreign body sensation Patient states that she stepped on something in September and it still feels like there is something in foot. Unsure of what it could be. Constant burning sensation to mid bottom of left foot and pain increases when bearing weight on foot. Joseline Lawrence RN documented in this encounter [facility] 12-22-2021 History of Present illness Narrative Radiology Service Progress Note PATIENT NAME: Mag Pinto DATE OF SERVICE: December 22, 2021 TIME: 10:51 AM PATIENT IDENTITY VERIFICATION COMPLETED USING TWO (2) IDENTIFIERS: Name and Date of confirmed by patient verbally. FALL SCREENING: Has the patient had 2 falls in the last year or 1 fall with injury or currently using an Ambulatory Assistive Device (Walker, Cane, Wheelchair, Crutches, etc.)? No PATIENT GENDER DATA: Female. status: : No status: NO. PATIENT RELEVANT IMPLANT DATA REVIEWED: Yes RADIOLOGY DEPARTMENT: General X-ray: Exam(s) Completed: Lower Extremity X-Ray(s): Foot, Left and Wt. Bearing PERIPHERAL IV DATA: Not applicable SIGNED BY: RT Cricket(R) December 22, 2021 10:51 AM documented in this encounter [facility] 10-25-2021 History of Present illness Narrative Images from the original note were not included. This note was created using [employer]. Subjective Mag Pinto is a 36 year old female. HPI by patient: Mag Pinto is a 36 year old female presenting to the office with multiple complaints. 1.) left sided ear pain. Started approximately 4 days prior, on Sunday. Associated symptoms include goopy drainage from the left eye- improved with prescribed drops, post nasal drainage, fatigue, painful swallowing on the left side, and 100F at home. Denies sinus congestion, runny nose, cough, headache, nausea, vomiting, diarrhea, chills, body aches, itchy eyes, and further drainage after starting the drops. Vaccinated for influenza: none. Covid Immunization Dates Overdue - COVID-19 VACCINE (1) Overdue - never done No completion, postpone, frequency change, or communication history exists for this topic. Personal history of Covid: none. Flu/RSV contacts: none. Strep contacts: none. Sick contacts: family. Covid + contacts: none. Travel in the last 14 days: none. Smoking history/second hand smoke: none. OTC zyrtec. No antibiotic use in the last 60 days. 2.) Glass in the left foot. Started 1 month prior, noted while in the garden. Thinks she stepped on glass, sees a glisten . Walks barefoot outside. Some burning to the foot. ALLERGIES Adhesive Tape-Silic* Rash, Itching, Other: See Comments Comment:Burning sensation. Pt required steroids d/t surgical drape on her skin Grass Pollen Intolerance Penicillins Hives, Itching, Other: See Comments Family History Reviewed Including Cardiac Diseases, Psychiatric Diseases, & Substance Abuse Problem: Cancer Relation: Maternal Grandfather Age of Onset: (Not Specified) Problem: Cancer Relation: Paternal Grandmother Age of Onset: (Not Specified) Problem: Breast Cancer Relation: Paternal Grandmother Age of Onset: (Not Specified) Problem: Breast Cancer Relation: Other Age of Onset: (Not Specified) Social History Tobacco Use Smoking status: Never Smoker Smokeless tobacco: Never Used Alcohol use: Not Currently Comment: 2 x annually prior to Drug use: Never Active Ambulatory Problems History of gestational diabetes Date Noted: 06/17/2020 History of section Date Noted: 01/14/2021 Class 3 severe obesity without serious comorbidity in adult (HCC) Date Noted: 01/16/2021 Allergic reaction to adhesive Date Noted: 01/16/2021 Resolved Ambulatory Problems Obesity complicating , third trimester Date Noted: 06/17/2020 Supervision of high risk in third trimester Date Noted: 12/31/2020 Past Medical History: 2011, 2017: Diabetes, gestational No date: UTI (urinary tract infection) Review of Systems Constitutional: Positive for fatigue. Negative for chills and fever. HENT: Positive for ear pain, postnasal drip and sore throat. Eyes: Positive for discharge (improved). Negative for photophobia and itching. Respiratory: Negative. Cardiovascular: Negative. Gastrointestinal: Negative. Endocrine: Negative. Genitourinary: Negative. Musculoskeletal: Negative. Skin: Positive for wound. Neurological: Negative. Hematological: Negative. Objective BP 131/89 Pulse 92 Resp 16 Ht 167.6 cm (5' 6 ) Wt 118.4 kg (261 lb) SpO2 97% BMI 42.13 kg/m Physical Exam Vitals reviewed. Constitutional: General: She is not in acute distress. Appearance: She is not ill-appearing, toxic-appearing or diaphoretic. HENT: Head: Normocephalic and atraumatic. Right Ear: Tympanic membrane, ear canal and external ear normal. Left Ear: Tympanic membrane, ear canal and external ear normal. Nose: Nose normal. Right Sinus: No maxillary sinus tenderness or frontal sinus tenderness. Left Sinus: No maxillary sinus tenderness or frontal sinus tenderness. Mouth/Throat: Mouth: Mucous membranes are moist. Pharynx: Oropharynx is clear. No oropharyngeal exudate or posterior oropharyngeal erythema. Eyes: Extraocular Movements: Extraocular movements intact. Conjunctiva/sclera: Conjunctivae normal. Pupils: Pupils are equal, round, and reactive to light. Cardiovascular: Rate and Rhythm: Normal rate and regular rhythm. Pulmonary: Effort: Pulmonary effort is normal. Breath sounds: Normal breath sounds. Musculoskeletal: Feet: Feet: Comments: +lesion, skin colored, no erythema or drainage. Possible callous vs glass in foot. Lymphadenopathy: Head: Right side of head: No submandibular or tonsillar adenopathy. Left side of head: No submandibular or tonsillar adenopathy. Cervical: No cervical adenopathy. Psychiatric: Behavior: Behavior is cooperative. Assessment and Plan (H92.02) Otalgia, left (primary encounter diagnosis) Plan: ESTABLISH WITH PRIMARY CARE NEW PATIENT, fluticasone (FLONASE ALLERGY RELIEF) 50 mcg/actuation nasal spray, methylPREDNISolone (MEDROL, SEAN,) 4 mg Dose-Pack (M79.672) Foot pain, left Plan: CONSULT TO PODIATRY (R53.83) Fatigue, unspecified type Plan: 2019 CORONAVIRUS (R09.82) Post-nasal drainage Plan: fluticasone (FLONASE ALLERGY RELIEF) 50 mcg/actuation nasal spray, methylPREDNISolone (MEDROL, SEAN,) 4 mg Dose-Pack, fexofenadine (AVIS ALLERGY) 180 mg tablet, 2019 CORONAVIRUS (J02.9) Pharyngitis, unspecified etiology Plan: methylPREDNISolone (MEDROL, SEAN,) 4 mg Dose-Pack, fexofenadine (AVIS ALLERGY) 180 mg tablet, 2019 CORONAVIRUS Education on viral vs bacterial infections. Most viral infections will last 10 days, sometimes 14. It is possible to have back to back viral infections. An antibiotic will not treat a virus. -Negative strep culture in office. -Unable to determine if there is a foreign body in the foot, refer to podiatry. -Covid test for rule out, results in 48 hours, isolation in the interim. [facility] Should you be positive and want outpatient covid treatment you can contact your primary care provider. -Wait until after trying the Flonase, Avis, and a negative covid test prior to starting the medrol dose pack. -Drink lots of fluids and get plenty of rest. -Vaporizers, cool mist humidifiers, warm showers, and warm fluids help open respiratory and sinus passages. Clean humidifiers daily. -OTC tylenol/ibuprofen as directed on the bottle. -Saline nasal spray as needed. Flonase twice daily can help reduce inflammation through the sinus cavities. -OTC Mucinex DM or generic version for cough/congestion for those over the age of 12. -Cough/deep breathing education, promote clearing of the airways and good lung expansion. -Make follow up with primary care for monitoring and resolution in symptoms. -Signs that warrant an ER evaluation: Sudden change/worsening in condition, lethargy, signs of dehydration, fever greater than 102 F that is not responding to Tylenol or ibuprofen (Motrin, Advil), drooling, difficulty swallowing, difficulty breathing, shortness of breath, chest pain, evidence of airway compromise (tripod position, neck extension, retractions), seizures, changes in mental status, or other concerns. The patient will pursue further outpatient evaluation with the primary care physician or another Urgent Care/Express Care as outlined in the after visit summary. The patient is agreeable to this plan of care and follow-up instructions have been explained in detail. The patient has received these instructions in written format and have expressed an understanding of the after visit summary. Medical Decision Making: Level: 3 - Low I spent a total of 30 minutes on the date of the service which included preparing to see the patient, [id number] patient care, completing clinical documentation, obtaining and/or reviewing separately obtained history, performing a medically appropriate examination, counseling and educating the patient/family/caregiver and ordering medications, tests, or procedures. This patient encounter involved the screening or treatment of novel coronavirus infection (COVID-19). documented in this encounter [facility] 10-25-2021 Instructions Tessa Schmitt APRN.CNP - 10/25/2021 6:20 PM EDT (H92.02) Otalgia, left (primary encounter diagnosis) Plan: ESTABLISH WITH PRIMARY CARE NEW PATIENT, fluticasone (FLONASE ALLERGY RELIEF) 50 mcg/actuation nasal spray, methylPREDNISolone (MEDROL, SEAN,) 4 mg Dose-Pack (M79.672) Foot pain, left Plan: CONSULT TO PODIATRY (R53.83) Fatigue, unspecified type Plan: 2019 CORONAVIRUS (R09.82) Post-nasal drainage Plan: fluticasone (FLONASE ALLERGY RELIEF) 50 mcg/actuation nasal spray, methylPREDNISolone (MEDROL, SEAN,) 4 mg Dose-Pack, fexofenadine (AVIS ALLERGY) 180 mg tablet, 2019 CORONAVIRUS (J02.9) Pharyngitis, unspecified etiology Plan: methylPREDNISolone (MEDROL, SEAN,) 4 mg Dose-Pack, fexofenadine (AVIS ALLERGY) 180 mg tablet, 2019 CORONAVIRUS Education on viral vs bacterial infections. Most viral infections will last 10 days, sometimes 14. It is possible to have back to back viral infections. An antibiotic will not treat a virus. -Negative strep culture in office. -Unable to determine if there is a foreign body in the foot, refer to podiatry. -Covid test for rule out, results in 48 hours, isolation in the interim. Result to my[facility]. Should you be positive and want outpatient covid treatment you can contact your primary care provider. -Wait until after trying the Flonase, Avis, and a negative covid test prior to starting the medrol dose pack. -Drink lots of fluids and get plenty of rest. -Vaporizers, cool mist humidifiers, warm showers, and warm fluids help open respiratory and sinus passages. Clean humidifiers daily. -OTC tylenol/ibuprofen as directed on the bottle. -Saline nasal spray as needed. Flonase twice daily can help reduce inflammation through the sinus cavities. -OTC Mucinex DM or generic version for cough/congestion for those over the age of 12. -Cough/deep breathing education, promote clearing of the airways and good lung expansion. -Make follow up with primary care for monitoring and resolution in symptoms. -Signs that warrant an ER evaluation: Sudden change/worsening in condition, lethargy, signs of dehydration, fever greater than 102 F that is not responding to Tylenol or ibuprofen (Motrin, Advil), drooling, difficulty swallowing, difficulty breathing, shortness of breath, chest pain, evidence of airway compromise (tripod position, neck extension, retractions), seizures, changes in mental status, or other concerns. documented in this encounter [facility] 02-28-2021 Note HNO ID: [id number] Author: Khadra Pyle RN Service: ? Author Type: Registered Nurse Type: Progress Notes Filed: 03/28/2021 6:26 AM Note Text: Pt denies concerns at this time. Khadra Pyle RN [facility] 02-28-2021 Note HNO ID: [id number] Author: Cody Stevenson DO Service: ? Author Type: Physician Type: Progress Notes Filed: 03/28/2021 6:26 AM Note Text: VISIT ? Mag Pinto is a 35 year old s/p repeat (x4) presenting for her visit. She denies any complaints. Mag is continuing to breastfeed. Her mood is stable. She previously declined control. Mag states her abdominal rash has completely resolved. ? OBJECTIVE: BP 118/82 Ht 5' 6.5 (1.689 m) Wt 284 lb (128.8 kg) Yes BMI 45.15 kg/m? EXAM: GENERAL: pleasant, in no apparent distress ABDOMEN: Incision healing well. No evidence of prior adhesive rash. EXTREMITIES: No edema. ? ASSESSMENT/PLAN: 35 year old s/p repeat ? Allergic reaction to adhesive -Resolved ? History of gestational diabetes -2 hour GTT ordered History of prior deliveries -Declines [facility] -Discussed options for ObGyn in [place] area including [facility] and Dr. Madrigal. Mag has researched her options and plans to establish care with Dr. Madrigal in th enext couple of weeks. I contacted Dr. Madrigal regarding her referral process and Mag's history. -Follow up with MFM as indicated. I spent a total of 30 minutes on the date of the service which included preparing to see the patient, [id number] patient care, performing a medically appropriate examination, counseling and educating the patient/family/caregiver, ordering medications, tests, or procedures and communicating with other HCPs (not separately reported). Cody Stevenson DO [facility] 01-20-2021 Note HNO ID: [id number] Author: Cody Stevenson DO Service: ? Author Type: Physician Type: Progress Notes Filed: 01/20/2021 5:37 PM Note Text: VISIT Mag Pinto is a 35 year old POD#6 s/p repeat (x4) presenting for incision check and evaluation of skin rash secondary to adhesive from surgical drape. Rash is similar to reactions from prior deliveries. Pain has improved with percocet. Denies fever, chills, N/V. Lochia appropriate. . Mood stable. Declined contraception OBJECTIVE: Ht 5' 6.5 (1.69m) Wt 302 lb (137.0kg) BMI 48.02 kg/(m2). EXAM: GENERAL: pleasant, in no apparent distress ABDOMEN: Incision intact, small area of skin separation near right angle. Diffuse erythema and small papula rash and areas of peeling skin consistent with allergic skin reaction. EXTREMITIES: +1 edema b/l LE ASSESSMENT/PLAN: 35 year old POD#6 s/p repeat Allergic reaction to adhesive -Complete medrol dose pack -Script for kenalog lotion sent to pharmacy -Close monitoring for worsening symptoms History of gestational diabetes -Plan for 2 hour GTT 4-12 weeks Medical Decision Making: Problems: Moderate: Acute illness with systemic symptoms Risk: Moderate: Drug management Medical Decision Making Level: 4 - Moderate Cody Stevenson DO January 20, 2021 4:53 PM [facility] 01-16-2021 Note HNO ID: [id number] Author: Marly Aldrich DO Service: Obstetrics Author Type: Resident Type: Progress Notes Filed: 01/16/2021 6:15 AM Note Text: Attestation signed by Cody Stevenson DO at 01/16/2021 1:40 PM MFM Attending Note I saw and evaluated the patient. I agree with the resident's findings and plan of care as documented below. POD#2 s/p RLTCS and SUSU. Doing well. Allergic reaction now noted on abdomen, likely secondary to adhesive on surgical drape. Mag reports a history of the same in prior pregnancies. Will start oral steroids today. Male s/p circ. . Denies PPBC. Meeting milestones. Ok for D/C home per patient request. Follow up in 1 week for incision check. Cody Stevenson DO, MPH, FACOG 01/16/2021 1:32 PM OBSTETRICS PROGRESS NOTE SERVICE DATE: January 16, 2021 SERVICE TIME: 5:02 AM ASSESSMENT: 35 year old female who is Postoperative Day #2 status post , Low Transverse delivery with male . PLAN: #Routine /postoperative care -Meeting all milestones -s/p chan catheter -Pain well-controlled -QBL 767 -Hgb 12.5->10.6 -Rh positive, Rubella immune -Male infant - #Allergic reaction -Rash on abdomen where drape adhesive was -Patient reports having this reaction with her previous c-sections -Topical steroid cream was given, patient denies improvement -Patient would like oral steroids as it helped in the past -No symptoms concerning for anaphylactic reaction #h/o GDMA -BG on arrival 76 -AM BG yesterday 135, not true fasting -Does not require anymore BG checks #Dispo -Discharge per attending Plan of care discussed with: Provider, RN, Patient. Anticipate discharge day: POD #2-3 SUBJECTIVE: Patient has no current complaints. Tolerating PO intake. Urinating without difficulty. Passing flatus. Pain well controlled with current regimen. Lochia decreasing. Ambulating without difficulty. Denies VILLAVICENCIO, vision changes, dizziness, CP, SOB, RUQ or epigastric pain, or increased LE swelling. OBJECTIVE: PHYSICAL EXAM: Heart: RR, S1, S2 Lungs: clear to auscultation Abdomen: Soft, Appropriately tender to palpation, Fundus firm below umbilicus, Non-distended, diffuse pink rash over abdomen Incision: Transverse incision C/D/I with steri-strips. Extremities: No calf tenderness and Edema equal bilaterally LAST VITALS: Pulse BP Resp O2 Sat Temp Pain 65 (!) 110/48 18 97 % 36.5 ?C (97.7 ?F) 2 Avg Min Max Vitals (last 12 hours) Flowsheet Row Name Average Min Max BP: Systolic 110 110 110 BP: Diastolic (!) 48 (!) 48 (!) 48 Temp 36.5 ?C (97.7 ?F) 36.5 ?C (97.7 ?F) 36.5 ?C (97.7 ?F) Pulse 65 65 65 Resp 18 18 18 SpO2 97 % 97 % 97 % HT/WT/BMI: Height Weight BMI 168.9 cm (5' 6.5 ) (!) 137 kg (302 lb) 48.01 LABS ABO/RH: 01/14/2021: O; Positive RUBELLA: 07/08/2020: Positive HANDH: Hematocrit (%) Date Value 01/15/2021 32.5 01/14/2021 39.6 Hemoglobin (g/dL) Date Value 01/15/2021 10.6 01/14/2021 12.5 Diagnostic tests reviewed for today's visit: Most recent labs and imaging results. SIGNATURE: Marly Aldrich DO PATIENT NAME: Mag Pinto DATE: January 16, 2021 TIME: 5:02 AM [facility] 01-16-2021 Note HNO ID: [id number] Author: Malissa Babin DO Service: Obstetrics Author Type: Resident Type: Progress Notes Filed: 01/16/2021 12:32 AM Note Text: In to evaluate patient for complaint of itchy abdominal rash. She reports noting diffuse pruritus over her abdomen this evening and now a new erythematous rash. She reports prior history of the same rash after each of her prior 3 sections, which has been attributed to allergic reaction to adhesive using in the drape. She reports in the past the rash has been desquamating and very painful. She also reports that Benadryl has never been effective and that she has required steroid treatment for this rash. She otherwise feels well and denies CP, SOB, and pain. On exam there is a diffuse erythematous maculopapular rash over the entire lower abdomen in the distribution of the skin prep area. There is no rash noted elsewhere. Discussed with Dr. Acuna. Will place order for topical steroid and re-examine with AM rounds tomorrow. Malissa Babin DO Obstetrics and Gynecology PGY-1 Pager #[phone] [facility] 01-15-2021 Note HNO ID: [id number] Author: Francisca Fontana DO Service: Obstetrics Author Type: Resident Type: Progress Notes Filed: 01/15/2021 7:28 AM Note Text: Attestation signed by Cody Stevenson DO at 01/15/2021 7:57 PM MFM Attending Note I saw and evaluated the patient. I agree with the resident's findings and plan of care as documented below. POD#1 s/p RLTC and SUSU in the setting of prior deliveries. Pain controlled. AM glucose not a true fasting glucose. No further glucose checks warranted. Will plan for screen. Chan out. Male at bedside. . Circumcision signed out to Dr. Rodriguez. Currently meeting milestones. Plan for D/C home POD#2. Cody Stevenson DO, MPH, FACOG 01/15/2021 7:54 PM OBSTETRICS PROGRESS NOTE SERVICE DATE: January 15, 2021 SERVICE TIME: 4:24 AM ASSESSMENT: 35 year old female who is Postoperative Day #1 status post , Low Transverse delivery with male . PLAN: #Routine postoperative/ care -QBL 767 -am CBC pending -not yet ambulating, plans to ambulate this am -pain well controlled -Chan in place, plan for removal today -lochia decreasing -Rh+, rubella immune -DVT ppx: SCDs #H/o Gestational diabetes -GDM with prior pregnancies -1hr GCT 194 -Opted for BG monitoring rather than completing 3hr GTT -BG well controlled without meds this -BG on arrival 76 Disposition: discharge per attending Anticipate discharge day: POD #2-3 SUBJECTIVE: Patient has no current complaints. Tolerating PO intake. Passing flatus. Pain well controlled with current regimen. Lochia decreasing. Not yet ambulating, plans to this am. Chan remains in place, plan for removal today. OBJECTIVE: PHYSICAL EXAM: Heart: RR, S1, S2 Lungs: clear to auscultation Abdomen: Soft Appropriately tender to palpation Fundus firm below umbilicus Non-distended Incision: Transverse incision C/D/I with steri-strips. Extremities: No edema and SCDs on and functioning LAST VITALS: Pulse BP Resp O2 Sat Temp Pain 55 96/51 17 96 % 36.7 ?C (98.1 ?F) 3 Avg Min Max Vitals (last 12 hours) Flowsheet Row Name Average Min Max BP: Systolic 106.80 95 123 BP: Diastolic 57.80 50 82 Temp 36.6 ?C (97.8 ?F) 36.2 ?C (97.2 ?F) 36.7 ?C (98.1 ?F) Pulse 66.69 55 73 Resp 16.08 (!) 11 20 SpO2 97.5 % 96 % 100 % HT/WT/BMI: Height Weight BMI 168.9 cm (5' 6.5 ) (!) 137 kg (302 lb) 48.01 LABS ABO/RH: 01/14/2021: O; Positive RUBELLA: 07/08/2020: Positive HANDH: Hematocrit (%) Date Value 01/14/2021 39.6 Hemoglobin (g/dL) Date Value 01/14/2021 12.5 Diagnostic tests reviewed for today's visit: am CBC pending SIGNATURE: Francisca Fontana DO PATIENT NAME: Mag Pinto DATE: January 15, 2021 TIME: 4:24 AM [facility] 01-14-2021 Note HNO ID: [id number] Author: Roman Portillo MD Service: Anesthesiology Author Type: Physician Type: Anesthesia Procedure Notes Filed: 01/14/2021 8:06 PM Note Text: ANESTHESIOLOGY PROCEDURE NOTE Spinal Block General Information Procedure Start Time/Medication Administration: 01/14/2021 4:44 PM Patient location during procedure: OR Timeout Performed Pre-procedure: timeout performed Consent Obtained: Yes Patient identity confirmed: arm band and patient Reason for Block: primary surgical anesthetic Staffing Anesthesiologist: Dahlia Guerin MD WOOD ROOM SUPERVISOR: Grant Resendiz APRN.WOOD ROOM SUPERVISOR SRNA: ANDI Castillo Performed by: ANDI Preparation Sterility Preparation: hand hygiene performed prior to procedure, surgical cap used, mask used, sterile drape used during line insertion, skin prep agent completely dried prior to procedure Site Prep: Betadine Procedure Details Patient Position: sitting Ultrasound Guided: No Monitoring: Pulse Ox and NIBP Approach: Midline Location: L3-4 Injection Technique: single-shot Needle Needle Type: pencil-tip Needle Gauge: 24 G Needle Length: 3.5 in Assessment Sensory Level: T6 Events: tolerated well Medications Administered Morphine (PF) injection (ASTRAMORPH), 0.15 mg bupivacaine-dextrose 0.75 % (7.5 mg/mL) injection (SENSORCAINE MPF SPINAL), 2 mL SIGNATURE: Grant Resendiz APRN.WOOD ROOM SUPERVISOR PATIENT NAME: Mag Pinto DATE: January 14, 2021 TIME: 4:50 PM CSN: [id number] [facility] 01-06-2021 Note HNO ID: [id number] Author: Nicolette Oquendo RN Service: Maternal Medicine Author Type: Registered Nurse Type: Procedures Filed: 01/06/2021 10:11 AM Note Text: Attestation signed by Cody Stevenson DO at 01/06/2021 10:25 AM MFM Attending I personally reviewed the heart rate tracing. Reactive NST. Cody Stevenson DO, MPH, FACOG 01/06/2021 10:25 AM OBSTETRICS NST SUMMARY SERVICE DATE: January 06, 2021 The patient is a 35 year old female, , who is at 37w6d with an DIANA of 01/21/2021, Alternate DIANA Entry dating method. NST OBJECTIVE FINDINGS PER NURSE: Start Time: 912 (01/06/21 : Nicolette Oquendo RN) Complete Time: 932 (01/06/21 : Nicolette Oquendo RN) Indications: Gestational Diabetes (01/06/21 : Nicolette Oquendo RN) Patient Reason For: NST Explanation: Procedure Explained;Monitor Explained;Verbalizes Understanding (01/06/21 : Nicolette Oquendo RN) Acoustic Stimulator: No (01/06/21 : Nicolette Oquendo RN) Interventions: Oral Fluids Given (01/06/21 : Nicolette Oquendo RN) MONITORING/ASSESSMENT: Baseline: 145 bpm (01/06/21 : Nicolette Oquendo RN) Variability: Moderate (6-25 bpm) (01/06/21 : Nicolette Oquendo RN) Accelerations: Present (01/06/21 [facility] : Nicolette Oquendo RN) Decelerations: Decelerations: None (01/06/21 [facility] : Nicolette Oquendo RN) Contractions: Not present (01/06/21 [facility] : Nicolette Oquendo RN) Frequency: Above information forwarded to Dr. Stevenson (01/06/21932 : Nicolette Oquendo RN) for final review and interpretation. SIGNATURE: Nicolette Oquendo RN PATIENT NAME: Mag Pinto DATE: January 06, 2021 TIME: 10:11 AM [facility] documented as of this encounter (statuses as of 10/25/2021) [facility]09-17-2021 History of Past illness Narrative* Problem Noted Date Resolved Date Supervision of high risk in third trim [place] 12/31/2020 01/16/2021 Overview: -GBS collected 12/31/20 -Continue weekly BPPs due to borderline fluid -Schedule Obesity complicating , third trimester 06/17/2020 01/16/2021 documented as of this encounter (statuses as of 11/23/2021) [facility]-17-2021 History of Past illness Narrative* Problem Noted Date Resolved Date Supervision of high risk in third trim [place] 12/31/2020 01/16/2021 Overview: -GBS collected 12/31/20 -Continue weekly BPPs due to borderline fluid -Schedule Obesity complicating , third trimester 06/17/2020 01/16/2021 documented as of this encounter (statuses as of 12/22/2021) [address]17-2021 History of Past illness Narrative* Problem Noted Date Resolved Date Supervision of high risk in third trim [place] 12/31/2020 01/16/2021 Overview: -GBS collected 12/31/20 -Continue weekly BPPs due to borderline fluid -Schedule Obesity complicating , third trimester 06/17/2020 01/16/2021 documented as of this encounter (statuses as of 12/23/2021) [facility]-17-2021 History of Past illness Narrative* Problem Noted Date Resolved Date Supervision of high risk in third trim [place] 12/31/2020 01/16/2021 Overview: -GBS collected 12/31/20 -Continue weekly BPPs due to borderline fluid -Schedule Obesity complicating , third trimester 06/17/2020 01/16/2021 documented as of this encounter (statuses as of 05/12/2022) [address]17-2021 History of Past illness Narrative* Problem Noted Date Resolved Date Supervision of high risk in third trim [place] 12/31/2020 01/16/2021 Overview: -GBS collected 12/31/20 -Continue weekly BPPs due to borderline fluid -Schedule Obesity complicating , third trimester 06/17/2020 01/16/2021 documented as of this encounter (statuses as of 08/15/2022) [address]17-2021 History of Past illness Narrative* Problem Noted Date Diagnosed Date Resolved Date Supervision of high risk pre gnancy in third trimester 12/31/2020 01/16/2021 Overview: -GBS collected 12/31/20 -Continue weekly BPPs due to borderline fluid -Schedule Obesity complicating pregnan cy, third trimester 06/17/2020 01/16/2021 documented as of this encounter (statuses as of 05/17/2023) [facility]09-16-2021 NoteHNO ID: [id number] Author: Nicolette Oquendo RN Service: Maternal Medicine Author Type: Registered Nurse Type: Procedures Filed: 12/30/2020 11:46 AM Note Text: Attestation signed by Cody Stevenson DO at 12/30/2020 10:02 PM MFM Attending I personally reviewed the heart rate tracing. Reactive NST. Cody Stevenson DO, MPH, FACOG 12/30/2020 OBSTETRICS NST SUMMARY SERVICE DATE: December 30, 2020 The patient is a 35 year old female, , who is at 36w6d with an DIANA of 01/21/2021, Alternate DIANA Entry dating method. NST OBJECTIVE FINDINGS PER NURSE: Start Time: 925 (12/30/20946 : Nicolette Oquendo RN) Complete Time: 946 (12/30/20946 : Nicolette Oquendo RN) Indications: Gestational Diabetes (12/30/20946 : Nicolette Oquendo RN) Patient Reason For: NST Explanation: Procedure Explained;Monitor Explained;Verbalizes Understanding (12/30/20946 : Nicolette Oquendo RN) Acoustic Stimulator: No (12/30/20946 : Nicolette Oquendo RN) Interventions: Reposition (12/30/20946 : Nicolette Oquendo RN) MONITORING/ASSESSMENT: Baseline: 145 bpm (12/30/20Jhonatan : Nicolette Oquendo RN) Variability: Moderate (6-25 bpm) (12/30/20946 : Nicolette Oquendo RN) Accelerations: Present (12/30/20946 : Nicolette Oquendo RN) Decelerations: Decelerations: None (12/30/20946 : Nicolette Oquendo RN) Contractions: Not present (12/30/20946 : Nicolette Oquendo RN) Frequency: Above information forwarded to Dr. Stevenson (12/30/20946 : Nicolette Oquendo RN) for final review and interpretation. SIGNATURE: Nicolette Oquendo RN PATIENT NAME: Mag Pinto DATE: December 30, 2020 TIME: 11:46 [facility]09-01-2021 NoteHNO ID: [id number] Author: Nicolette Oquendo RN Service: Maternal Medicine Author Type: Registered Nurse Type: Procedures Filed: 12/15/2020 11:49 AM Note Text: Attestation signed by Mack Dillard Jr., MD at 12/15/2020 11:58 AM Reactive nonstress test, no decelerations noted, no contractions seen. Modified biophysical profile reassuring. OBSTETRICS NST SUMMARY SERVICE DATE: December 15, 2020 The patient is a 35 year old female, , who is at 34w5d with an DIANA of 01/21/2021, Alternate DIANA Entry dating method. NST OBJECTIVE FINDINGS PER NURSE: Start Time: 1010 (12/15/201101 : Nicolette Oquendo RN) Complete Time: 110 (12/15/20 1102 : Nicolette Oquendo RN) Indications: Gestational Diabetes (12/15/20 110 : Nicolette Oquendo RN) Patient Reason For: NST Explanation: Procedure Explained;Monitor Explained;Verbalizes Understanding (12/15/20 110 : Nicolette Oquendo RN) Acoustic Stimulator: No (12/15/201101 : Nicolette Oquendo RN) Interventions: Reposition;Oral Fluids Given (12/15/201101 : Nicolette Oquendo RN) MONITORING/ASSESSMENT: Baseline: 140 bpm (12/15/20 110[place] : Nicolette Oquendo RN) Variability: Moderate (6-25 bpm) (12/15/20 110 : Nicolette Oquendo RN) Accelerations: Present (12/15/20 110 : Nicolette Oquendo RN) Decelerations: Decelerations: None (12/15/20 110 : Nicolette Oquendo RN) Contractions: Not present (12/15/20 110 : Nicolette Oquendo RN) Frequency: Above information forwarded to Dr. Dillard (12/15/201101 : Nicolette Oquendo RN) for final review and interpretation. SIGNATURE: Nicolette Oquendo RN PATIENT NAME: Mag Pinto DATE: December 15, 2020 TIME: 11:49 [facility]08-25-2021 NoteHNO ID: [id number] Author: Mechelle Galvan RN Service: Maternal Medicine Author Type: Registered Nurse Type: Procedures Filed: 12/08/2020 11:18 AM Note Text: Attestation signed by Mack Dillard Jr., MD at 12/08/2020 11:44 AM Reactive nonstress test no decelerations noted, no contractions seen, biophysical profile 10 out of 10 OBSTETRICS NST SUMMARY SERVICE DATE: December 08, 2020 The patient is a 35 year old female, , who is at 33w5d with an DIANA of 01/21/2021, Alternate DIANA Entry dating method. VS: BP 129/72, HR 78, RR 20 Dr Dillard reviewed FHR tracing. Pt released ambulatory for scheduled OB appt. NST OBJECTIVE FINDINGS PER NURSE: Start Time: 1013 (12/08/20 1040 : Mechelle Galvan RN) Complete Time: 1040 (12/08/20 1040 : Mechelle Galvan RN) Indications: Gestational Diabetes (12/08/20 1040 : Mechelle Galvan RN) Patient Reason For: reviewed with pt (12/08/20 1040 : Mechelle Galvan RN) NST Explanation: Procedure Explained;Monitor Explained;Verbalizes Understanding (12/08/20 1040 : Mechelle Galvan RN) Acoustic Stimulator: No (12/08/20 1040 : Mechelle Galvan RN) Interventions: Oral Fluids Given (12/08/20 1040 : Mechelle Galvan RN) MONITORING/ASSESSMENT: Baseline: 160 bpm (baseline decreasing to 140) (12/08/20 1040 : Mechelle Galvan RN) Variability: Moderate (6-25 bpm) (12/08/20 1040 : Mechelle Galvan RN) Accelerations: Present (12/08/20 1040 : Mechelle Galvan RN) Decelerations: Decelerations: None (12/08/20 1040 : Mechelle Galvan RN) Contractions: Not present (12/08/200 : Mechelle Galvan RN) Frequency: Above information forwarded to Dr Dillard (12/08/201039 : Mechelle Galvan RN) for final review and interpretation. SIGNATURE: Mechelle Galvan RN PATIENT NAME: Mag Pinto DATE: December 08, 2020 [facility]: 11:18 [facility]HNO ID: [id number] Author: Mechelle Galvan RN Service: ? Author Type: Registered Nurse Type: Nursing Progress Note Filed: 10/13/2020 11:08 AM Note Text: Labs drawn without difficulty from RACLidya Calderónan labeled and sent to lab. Pt tolerated well.[facility]06-30-2021 NoteHNO ID: [id number] Author: Mechelle Galvan RN Service: ? Author Type: Registered Nurse Type: Nursing Progress Note Filed: 10/13/2020 9:59 AM Note Text: Pt given GlucoCrush 50gm glucose PO. Instructed pt to remain NPO except sips water. Pt tolerated well.[facility] Diagnosis Otalgia, left- Primary Foot pain, left Pain in limb Fatigue, unspecified type Post-nasal drainage Unspecified sinusitis (chronic) Pharyngitis, unspecified etiology [facility] Diagnosis Post-nasal drainage Unspecified sinusitis (chronic) Pharyngitis, unspecified etiology [facility] Diagnosis Otalgia, left Post-nasal drainage Unspecified sinusitis (chronic) documented [facility]* Diagnosis Porokeratosis- Primary Other specified congenital anomaly of skin Foot pain, left Pain in limb Foreign body (FB) in soft tissue Residual foreign body in soft tissue [facility] Diagnosis Pain in left foot Pain in limb [facility] Diagnosis Porokeratosis- Primary Other specified congenital anomaly of skin [facility]* Diagnosis Acute conjunctivitis of left eye, unspecified acute conjunctivitis type- Primary [facility]* Diagnosis Urinary frequency- Primary [facility] Diagnostic Procedure Only (Routine) - Pending Review Specialty Diagnoses / Procedures Referred By Dru t Referred To Contact US IMAGING Diagnoses Porokeratosis Foreign body (FB) in soft tissue Procedures US FOREIGN BODY LT US LMTD JOINT/OTH NONVASC XTR STRUX R-T W/IMG [address] [place] [address] Us Imaging Referral ID Status Reason Start Date Expiration Date Visits Requested Visits Authorized [id number] Pending Review Auto-Generat ed Referral 12/22/2021 01/21/2023 1 1 [facility] for referral (narrative)* Diagnostic Procedure Only (Routine) - Closed Specialty Diagnoses / Procedures Referred By Contjordana t Referred To Contact XR IMAGING Diagnoses Pain in left foot Procedures XR FOOT GENERAL 3V AP/LAT/OBL LEFT RADEX FOOT COMPLETE MINIMUM 3 VIEWS [address] [place] [address] Xr Imaging Referral ID Status Reason Start Date Expiration Date V isits Requested Visits Authorized [id number] Closed Auto-Generate d Referral 11/04/2021 12/04/2022 1 1 [facility] for visit Narrative* Diagnostic Procedure Only (Routine) - Closed Specialty Diagnoses / Procedures Referred By Dru t Referred To Contact XR IMAGING Diagnoses Pain in left foot Procedures XR FOOT GENERAL 3V AP/LAT/OBL LEFT RADEX FOOT COMPLETE MINIMUM 3 VIEWS [address] [place] [address] Xr Imaging Referral ID Status Reason Start Date Expiration Date V isits Requested Visits Authorized [id number] Closed Auto-Generate d Referral 11/04/2021 12/04/2022 1 1 [facility] Summary Purpose Family History No Family History Records FoundNo Family History Records FoundNo Family History Records Found Advance Directives No Advanced Directives Records FoundDocuments on File Type Date Recorded Patient Trial Court Justice Expl anation Advance Directive(s) 08/16/2021 1:04 AM Advance Directive(s) 01/09/2021 11:58 AM Assessments Diagnosis Amenorrhea- Primary Absence of menstruation Diagnosis Encounter to determine viability of , single or unspecified fetus- Primary Diagnosis Encounter to determine viability of , single or unspecified fetus Obesity complicating , first trimester Diagnosis care, subsequent , first trimester- Primary History of gestational diabetes in prior , currently with other poor obstetric history Increased BMI Other symptoms concerning nutrition, metabolism, and development Maternal care due to low transverse uterine scar from previous delivery Diagnosis Nuchal translucency of fetus on ultrasound- Primary Abnormal findings on screening History of Present Illness * Mack Dillard Jr. - 06/17/2020 12:20 PM EST Mag is here for a new nurse visit single live intrauterine gestation consistent last menstrual period dating is noted. Uterus visit was performed. She has had 3 prior sections will need a repeat section for this . Follow-up would be otherwise as clinically indicated in 3 to 4 weeks. documented in this encounter Reason for Referral Specialty Diagnoses / Procedures Referred By Contac t Referred To Contact Podiatry Diagnoses Foot pain, left Procedures CONSULT TO PODIATRY OFFICE/OUTPATIENT [facility] 60-74 MINUTES Tessa Schmitt, SALVAGE GR[employer]ER.[employer] [address] [id number] Referral ID Status Reason Start Date Expiration Date Visits Requested Visits Authorized [id number] Authorized PCP Requested Referral 10/25/2021 10/25/2022 1 1 Specialty Diagnoses / Procedures Referred By Contac t Referred To Contact Diagnoses Otalgia, left Procedures ESTABLISH WITH PRIMARY CARE NEW PATIENT OFFICE/OUTPATIENT [facility] 60-74 MINUTES Tessa Schmitt, SALVAGE GRINDER.[employer] [address] [phone] Referral ID Status Reason Start Date Expiration Date Visits Requested Visits Authorized [id number] Authorized PCP Requested Referral 10/25/2021 10/25/2022 1 1 Additional Source Comments INFORMATION SOURCE (unrecogn ized section and content) DATE CREATED AUTHOR AUTHOR'S ORGANIZ ATION 08/17/2021 [facility] DATE CREATED AUTHOR AUTHOR'S ORGANIZ ATION 05/19/2023 [facility] Source Comments (unrecognize d section and content) In the event this informatio n is protected by the Federal Confidentiality of Alcohol and Drug Abuse Patient Records regulations: The Federal rules restrict any use of the information to criminally investigate or prosecute any alcohol or drug abuse patient.[facility] the event this information is protected by the Federal Confidentiality of Alcohol and Drug Abuse Patient Records regulations: The Federal rules restrict any use of the information to criminally investigate or prosecute any alcohol or drug abuse patient.[facility] the event this information is protected by the Federal Confidentiality of Alcohol and Drug Abuse Patient Records regulations: The Federal rules restrict any use of the information to criminally investigate or prosecute any alcohol or drug abuse patient.[facility] the event this information is protected by the Federal Confidentiality of Alcohol and Drug Abuse Patient Records regulations: The Federal rules restrict any use of the information to criminally investigate or prosecute any alcohol or drug abuse patient.[facility] the event this information is protected by the Federal Confidentiality of Alcohol and Drug Abuse Patient Records regulations: The Federal rules restrict any use of the information to criminally investigate or prosecute any alcohol or drug abuse patient.[facility] the event this information is protected by the Federal Confidentiality of Alcohol and Drug Abuse Patient Records regulations: The Federal rules restrict any use of the information to criminally investigate or prosecute any alcohol or drug abuse patient.[facility] the event this information is protected by the Federal Confidentiality of Alcohol and Drug Abuse Patient Records regulations: The Federal rules restrict any use of the information to criminally investigate or prosecute any alcohol or drug abuse patient.[facility] the event this information is protected by the Federal Confidentiality of Alcohol and Drug Abuse Patient Records regulations: The Federal rules restrict any use of the information to criminally investigate or prosecute any alcohol or drug abuse patient.[facility] the event this information is protected by the Federal Confidentiality of Alcohol and Drug Abuse Patient Records regulations: The Federal rules restrict any use of the information to criminally investigate or prosecute any alcohol or drug abuse patient.[facility] the event this information is protected by the Federal Confidentiality of Alcohol and Drug Abuse Patient Records regulations: The Federal rules restrict any use of the information to criminally investigate or prosecute any alcohol or drug abuse patient.[facility] the event this information is protected by the Federal Confidentiality of Alcohol and Drug Abuse Patient Records regulations: The Federal rules restrict any use of the information to criminally investigate or prosecute any alcohol or drug abuse patient.[facility] the event this information is protected by the Federal Confidentiality of Alcohol and Drug Abuse Patient Records regulations: The Federal rules restrict any use of the information to criminally investigate or prosecute any alcohol or drug abuse patient.[facility] the event this information is protected by the Federal Confidentiality of Alcohol and Drug Abuse Patient Records regulations: The Federal rules restrict any use of the information to criminally investigate or prosecute any alcohol or drug abuse patient.[facility] the event this information is protected by the Federal Confidentiality of Alcohol and Drug Abuse Patient Records regulations: The Federal rules restrict any use of the information to criminally investigate or prosecute any alcohol or drug abuse patient.[facility] the event this information is protected by the Federal Confidentiality of Alcohol and Drug Abuse Patient Records regulations: The Federal rules restrict any use of the information to criminally investigate or prosecute any alcohol or drug abuse patient.[facility] Reason for Visit (unrecogniz ed section and content) Reason Comments Orders Reason Comments Us Procedure Reason Comments Care Reason Comments Ear Pain ear pain, 2 kids hav e ear infection. Reason Comments Refill Request Reason Comments New Pain Foreign body sensation Specialty Diagnoses / Procedures Referred By Contac t Referred To Contact Podiatry Diagnoses Foot pain, left Procedures CONSULT TO PODIATRY OFFICE/OUTPATIENT [facility] MDM 60-74 MINUTES Tessa Schmitt APRN.SUPER[employer]OR [employer] [address] [place] [address] Referral ID Status Reason Start Date Expiration Date V isits Requested Visits Authorized [id number] Closed PCP Requested Referral 10/25/2021 10/25/2022 1 1 Reason Comments Established Patient Follow Up Pain foreign body Reason Comments Eye Problem Possible pink eye, s on has it also Reason Comments UTI Urinary frequency, l ow back pain, painful urination x2 days Care Teams (unrecognized sec tion and content) [employer] Relationship Specialty Start Date End Date Shyanne Walker MD [address] [address] PCP - General Family Practice 05/13/20 [employer] Relationship Specialty Start Date End Date Shyanne Walker MD [address] [address] PCP - General Family Practice 05/13/20 [employer] Relationship Specialty Start Date End Date Shyanne Walker MD [address] [address] PCP - General Family Medicine 05/13/20 [employer]per Relationship Specialty Start Date End Date Shyanne Walker MD [address] [address] PCP - General Family Medicine 05/13/20 FOR RECORDS PERTAINING TO PATIENTS WHO ARE OR HAVE BEEN ENROLLED IN A CHEMICAL DEPENDENCY/SUBSTANCEABUSE PROGRAM, SOME INFORMATION MAY BE OMITTED. This clinical summary was aggregated from multiple sources. Caution should be exercised in using it in the provision of clinical care. This summary normalizes information from multiple sources, and as a consequence, information in this document may materially change the coding, format and clinical context of patient data. In addition, data may be omitted in some cases. CLINICAL DECISIONS SHOULD BE BASED ON THE PRIMARY CLINICAL RECORDS. [facility]. provides no warranty or guarantee of the accuracy or completeness of information in this document.
== END | disposition home or self-care (01) ==
PROVIDERS: Referring Provider Obstetrics & Gynecology; Visit Provider Obstetrics & Gynecology
DX: R31.9 Hematuria, unspecified (principal)
CPT/HCPCS: 87086

== ENCOUNTER → 2023-07-26 | Outpatient (CLI) | payer OTHER, SELFPAY ==
[2023-07-26 09:09] LABS: T4 Free Direct 0.99 ng/dL (0.76-1.46); Thyroid Stim Hormone (TSH) 2.68 uIU/mL (0.358-3.74)
== END | disposition home or self-care (01) ==
LOC: LAB 06:30
PROVIDERS: Referring Provider Obstetrics & Gynecology; Visit Provider Obstetrics & Gynecology
DX: R63.5 Abnormal weight gain (principal)
CPT/HCPCS: 36415; 84439; 84443

== ENCOUNTER → 2023-08-15 | Outpatient (CLI) | payer OTHER, SELFPAY ==
[2023-08-15 07:32] LABS: Absolute Lymphocyte Count 3.81 X10^3/uL (0.83-4.51); Absolute Neutrophil Count 3.2 X10^3/uL (2.0-7.7); Basophil# 0.06 X10^3/uL; Basophil% 0.8 % (0-1); Eosinophil# 0.17 X10^3/uL; Eosinophils% 2.2 % (0-5); Hematocrit 42.2 % (37-47); Hemoglobin 13.6 g/dL (12.0-15.0); Lymphocyte # 3.81 X10^3/ul (0.83-4.51); Mean Corp Hgb Conc 32.2 g/dL (32-36); Mean Corpuscular Hgb 28.6 pg (27.0-32.0); Mean Corpuscular Volume 88.8 fL (81-99); Mean Platelet Vol. 9.4 fl (6.2-12.0); Monocyte# 0.56 X10^3/uL; Monocyte% 7.2 % (0-10); NRBC Flagged by Analyzer 0 % (0-5); Neutrophil # 3.15 X10^3/uL (2.7-7.7); Neutrophil % 40.4 % (47-70); Platelet Count 334 K/mm3 (150-450); RBC Distribution Width CV 13.8 % (11.6-14.6); RBC Distribution Width SD 44.8 fl (35.1-43.9); Red Blood Count 4.75 M/mm3 (4.2-5.4); White Blood Count 7.8 K/mm3 (4.4-11.0)
[2023-08-15 07:58] LABS: ALB/GLOB Ratio 1.1 RATIO (0.9-2.4); AST(SGOT) 18 U/L (15-37); Alanine Aminotransfer ALT/SGPT 23 U/L (13-56); Albumin, Serum 3.8 g/dL (3.2-5.0); Alkaline Phosphatase 61 U/L (45-117); Anion Gap 3 (5-15); BUN 13 mg/dL (7-18); BUN/Creat Ratio 15.7 RATIO (10-20); Calcium,Total 9.4 mg/dL (8.5-10.1); Chloride 108 mmol/L (98-107); Cholesterol 223 mg/dL (200); Creatinine, Serum 0.83 mg/dL (0.55-1.02); EST Glomerular Filtration Rate 83 mL/min (>60); Est Glom Filt Rate - Afr Amer 100 mL/min (>60); Globulin 3.6 g/dL (2.2-4.2); Glucose 105 mg/dL (74-106); High Density Lipoprotein 48 mg/dL; Potassium 4.1 mmol/L (3.5-5.1); Protein, Total 7.4 g/dL (6.4-8.2); Sodium Level 140 mmol/L (136-145); Triglycerides 164 mg/dL; Very Low Density Lipoprotein 33 mg/dL (5-40)
[2023-08-15 09:18] LABS: Hemoglobin A1c 5.5 % (3.8-5.6)
== END | disposition home or self-care (01) ==
LOC: LAB 06:20
PROVIDERS: Referring Provider Obstetrics & Gynecology; Visit Provider Obstetrics & Gynecology
DX: E66.8 Other obesity (principal)
CPT/HCPCS: 36415; 80053; 80061; 83036; 85025

== ENCOUNTER → 2023-11-01 | Outpatient (CLI) | payer OTHER, SELFPAY | END | disposition home or self-care (01) | PROVIDERS: Referring Provider Nurse Practitioner Family; Visit Provider Nurse Practitioner Family | DX: N89.8 Other specified noninflammatory disorders of vagina (principal) | CPT/HCPCS: 87070; 87205 ==